=== PATIENT | male | born 1955 | race Hispanic/Latino ===

== ENCOUNTER 2018-01-31 03:48 | Emergency (ER) | payer BC, OTHER ==
[2018-01-31 04:41] LABS: Absolute Lymphocytes (CBC) 2.3 K/uL (0.7-4.9); Absolute Neutrophil 7.6 K/uL (1.8-8.0); Basophils % 0.6 % (0-1.3); Eosinophils % 3.1 % (0-4.4); Lymphocytes % 20.8 % (15.3-44.8); MCH 30.4 pg (27.0-35.0); MCV 91.2 fL (80-100); MPV 9.5 fL (7.6-11.3); Monocytes % 8.5 % (3.3-12.3); RBC Red Blood Cell Count 5.27 M/uL (4.33-5.43)
[2018-01-31 05:01] LABS: Potassium 3.8 mEq/L (3.6-5.0)
[2018-01-31 05:02] LABS: Glomerular Filtration Rate > 60 mL/min (>60)
[2018-01-31 05:07] LABS: Bilirubin Direct 0.1 mg/dL (0-0.2); Bilirubin Total 0.7 mg/dL (0.3-1.2); Protein, Total 6.9 g/dL (6.0-8.3)
[2018-01-31] MEDS ORDERED: MEPERIDINE HCL 25 MG/0.5 ML ONE ×2 (05:15→06:17)
[2018-01-31 05:35] LABS: Urine Blood TRACE (NEG); Urine Glucose NEGATIVE (NEG); Urine Protein NEGATIVE (NEG); Urine Specific Gravity 1.025 (1.005-1.030)
[2018-01-31 05:43] LABS: Urine Bacteria <20 /HPF (NONE SEEN); Urine Culture Reflex Order NOT NEEDED; Urine RBC <5 /HPF (NONE SEEN)
--- NOTE | 2018-01-31 07:54 | EDPHYS ---
Physician Documentation [facility] Name: Martir Montejo Jr Age: 62 yrs Sex: Male : 1955 Arrival Date: 01/31/2018 Time: 03:50 Bed 20 Private MD: Saúl Loaiza ED Physician Helder Lanier HPI: 01/31 04:13 This 62 yrs old Male presents to ER via Unassigned with complaints of rn Abdominal Pain. 04:14 The patient presents with abdominal pain in the lower abdomen. Onset: The rn symptoms/episode began/occurred yesterday. The symptoms do not radiate. Associated signs and symptoms: Pertinent positives: constipation, Pertinent negatives: anorexia, blood in stools, diarrhea, dysuria, fever, shortness of breath, testicular pain, vomiting, vomiting blood. The symptoms are described as achy, crampy. Modifying factors: The symptoms are alleviated by nothing, the symptoms are aggravated by nothing. Severity of pain: At its worst the pain was mild in the emergency department the pain is unchanged. The patient has not experienced similar symptoms in the past. Reports lower abd pain that began last night, intermittent, tried to go to bathroom and couldn't, no fever, no trauma, never happened before, started shortly after taking zquil. Historical: - Allergies: 04:19 PENICILLINS; jd3 - Home Meds: 04:19 carvedilol 12.5 mg oral tab 1 tab 2 times per day [Active]; lisinopril 20 mg Oral tab 1 jd3 tab once daily [Active]; simvastatin 20 mg Oral tab 1 tab once daily [Active]; - PMHx: 04:19 Hypertension; High Cholesterol; jd3 - PSHx: 04:19 left foot surgery; jd3 - Immunization history:: Adult Immunizations up to date. - Family history:: not pertinent. - Social history:: Smoking status: Patient uses tobacco products, smokes one pack cigarettes per day. - Hospitalizations: : No recent hospitalization is reported. ROS: 04:14 Constitutional: Negative for fever, chills, and weight loss, Eyes: Negative for injury, rn pain, redness, and discharge, Cardiovascular: Negative for chest pain, palpitations, and edema, Respiratory: Negative for shortness of breath, cough, wheezing, and pleuritic chest pain, Abdomen/GI: Negative for nausea, vomiting, diarrhea Back: Negative for injury and pain, MS/Extremity: Negative for injury and deformity, Skin: Negative for injury, rash, and discoloration, Neuro: Negative for headache, weakness, numbness, tingling, and seizure. Exam: 04:14 Constitutional: This is a well developed, well nourished patient who is awake, alert, rn and in no acute distress. Head/Face: Normocephalic, atraumatic. Eyes: Pupils equal round and reactive to light, extra-ocular motions intact. Lids and lashes normal. Conjunctiva and sclera are non-icteric and not injected. Cornea within normal limits. Periorbital areas with no swelling, redness, or edema. Neck: Trachea midline, no thyromegaly or masses palpated, and no cervical lymphadenopathy. Supple, full range of motion without nuchal rigidity, or vertebral point tenderness. No Meningismus. Cardiovascular: Regular rate and rhythm with a normal S1 and S2. No gallops, murmurs, or rubs. Normal PMI, no JVD. No pulse deficits. Respiratory: Lungs have equal breath sounds bilaterally, clear to auscultation and percussion. No rales, rhonchi or wheezes noted. No increased work of breathing, no retractions or nasal flaring. Abdomen/GI: Soft, non-tender, with normal bowel sounds. No distension or tympany. No guarding or rebound. No evidence of tenderness throughout. MS/ Extremity: Pulses equal, no cyanosis. Neurovascular intact. Full, normal range of motion. Equal circumference. Neuro: Awake and alert, GCS 15, oriented to person, place, time, and situation. Cranial nerves II-XII grossly intact. Motor strength 5/5 in all extremities. Sensory grossly intact. Cerebellar exam normal. Normal gait. Vital Signs: 04:15 BP 154 / 139; Pulse 62; Resp 18 S; Temp 98.0(O); Pulse Ox 99% on R/A; Weight 100.24 kg jd3 (R); Height 5 ft. 10 in. (177.80 cm) (R); Pain 0/10; 04:48 BP 159 / 76; Pulse 55; Resp 18 S; Pulse Ox 98% on R/A; Pain 0/10; jd3 05:45 BP 168 / 82; Pulse 59; Resp 17 S; Pulse Ox 96% on R/A; Pain 6/10; jd3 06:43 BP 179 / 75; Pulse 56; Resp 17 S; Pulse Ox 96% on R/A; jd3 08:15 BP 170 / 74; Pulse 62; Resp 15; Temp 97.9; Pulse Ox 99% on R/A; Pain 6/10; ch 04:15 Body Mass Index 31.71 (100.24 kg, 177.80 cm) jd3 MDM: 04:00 Patient medically screened. rn 07:57 Data reviewed: vital signs, nurses notes, lab test result(s), EKG, radiologic studies, [facility] scan, plain films. 01/31 04:13 Order name: Basic Metabolic Panel; Complete Time: 06:12 rn 01/31 04:13 Order name: CBC with Diff; Complete Time: 04:49 rn 01/31 04:13 Order name: Creatinine for Radiology; Complete Time: 06:12 rn 01/31 04:13 Order name: Hepatic Function; Complete Time: 06:12 rn 01/31 04:13 Order name: Lipase; Complete Time: 06:12 rn 01/31 04:13 Order name: Urine Microscopic Only; Complete Time: 06:12 rn 01/31 04:13 Order name: IV Saline Lock; Complete Time: 04:24 rn 01/31 04:13 Order name: CT Abd/Pelvis - W/Contrast rn 01/31 04:13 Order name: Flu; Complete Time: 06:12 rn 01/31 04:13 Order name: CK; Complete Time: 06:12 rn 01/31 05:08 Order name: Urine Dipstick--Ancillary (enter results); Complete Time: 06:12 rg2 01/31 04:13 Order name: Labs collected and sent; Complete Time: 04:24 rn 01/31 04:13 Order name: Urine Dipstick-Ancillary (obtain specimen); Complete Time: 05:07 rn 01/31 07:57 Order name: EKG - Nurse/Tech; Complete Time: 08:05 [facility] Administered Medications: 05:07 Drug: Demerol - Meperidine 12.5 mg Route: IVP; Site: right antecubital; jd3 06:03 Follow up: Response: No adverse reaction; Pain is unchanged, physician notified jd3 06:02 Drug: Demerol - Meperidine 12.5 mg Route: IVP; Site: right antecubital; jd3 07:09 Follow up: Response: No adverse reaction; Marked relief of symptoms Disposition: 01/31/18 07:54 Discharged to Home. Impression: Abdominal tenderness. - Condition is Stable. - Discharge Instructions: Abdominal Pain, Adult, Abdominal Pain, Adult, [id number]. - Prescriptions for Bentyl 20 mg Oral Tablet - take 1 tablet by ORAL route every 6 hours As needed; 20 tablet. Pepcid 20 mg Oral Tablet - take 1 tablet by ORAL route every 12 hours for 10 days; 20 tablet. Zofran 4 mg Oral Tablet - take 1 tablet by ORAL route every 12 hours As needed; 20 tablet. - Work release form, Family Work Release, Medication Reconciliation Form, Thank You Letter, Antibiotic Education, Prescription Opioid Use form. - Follow up: Saúl Loaiza MD; When: 1 - 2 days; Reason: Recheck today's complaints, Continuance of care, Re-evaluation by your physician. - Problem is new. - Symptoms have improved. Signatures: Dispatcher [employer] Tamika Negrete, RN RN Cristobal Natarajan MD MD cha Nieto, Roman, MD MD rn Davies, Jonathon, RN RN jd3
--- NOTE | 2018-01-31 07:54 | ER ---
Nurse's Notes [facility] Name: Martir Montejo Jr Age: 62 yrs Sex: Male : 1955 Arrival Date: 01/31/2018 Time: 03:50 Bed 20 Private MD: Saúl Loaiza Diagnosis: Abdominal tenderness Presentation: 01/31 04:13 Presenting complaint: Patient states: "I have been having lower abdominal, back , and jd3 neck pains and I can't figure out what it is". Transition of care: patient was not received from another setting of care. Onset of symptoms was January 30, 2018. Care prior to arrival: None. 04:13 Method Of Arrival: Ambulatory jd3 04:13 Acuity: SONAM 3 jd3 Historical: - Allergies: 04:19 PENICILLINS; jd3 - Home Meds: 04:19 carvedilol 12.5 mg oral tab 1 tab 2 times per day [Active]; lisinopril 20 mg Oral tab 1 jd3 tab once daily [Active]; simvastatin 20 mg Oral tab 1 tab once daily [Active]; - PMHx: 04:19 Hypertension; High Cholesterol; jd3 - PSHx: 04:19 left foot surgery; jd3 - Immunization history:: Adult Immunizations up to date. - Family history:: not pertinent. - Social history:: Smoking status: Patient uses tobacco products, smokes one pack cigarettes per day. - Hospitalizations: : No recent hospitalization is reported. Screenin:16 Abuse screen: Denies threats or abuse. Nutritional screening: No deficits noted. jd3 Tuberculosis screening: No symptoms or risk factors identified. Fall Risk None identified. Assessment: 04:22 General: Appears in no apparent distress. comfortable, Behavior is calm, cooperative, jd3 appropriate for age. Pain: Denies pain. Neuro: Level of Consciousness is awake, alert, obeys commands, Oriented to person, place, time, situation. Cardiovascular: Heart tones S1 S2 present Capillary refill < 3 seconds Patient's skin is warm and dry. Respiratory: Airway Respiratory effort is even, unlabored, Respiratory pattern is regular, symmetrical, Breath sounds are clear bilaterally. GI: Abdomen is round Bowel sounds present X 4 quads. Abd is soft and non tender X 4 quads. Patient currently denies nausea, vomiting. : No signs and/or symptoms were reported regarding the genitourinary system. EENT: No signs and/or symptoms were reported regarding the EENT system. Derm: Skin is intact, Skin is dry, Skin is normal, Skin temperature is warm. Musculoskeletal: Circulation, motion, and sensation intact. Range of motion: intact in all extremities. 04:26 Reassessment: CT notified of pt finishing oral contrast. jd3 04:48 Reassessment: Patient appears in no apparent distress at this time. Patient and/or jd3 family updated on plan of care and expected duration. Pain level reassessed. Patient is alert, oriented x 3, equal unlabored respirations, skin warm/dry/pink. 05:05 Reassessment: pt reporting pain, provider notified, new orders received, see MAR. jd3 05:45 Reassessment: Patient appears in no apparent distress at this time. Patient and/or jd3 family updated on plan of care and expected duration. Pain level reassessed. Patient is alert, oriented x 3, equal unlabored respirations, skin warm/dry/pink. 06:00 Reassessment: pt reporting continuing pain. provider notified, new orders received see jd3 MAR. 06:43 Reassessment: Patient appears in no apparent distress at this time. Patient and/or jd3 family updated on plan of care and expected duration. Pain level reassessed. Patient is alert, oriented x 3, equal unlabored respirations, skin warm/dry/pink. 07:05 Reassessment: Patient appears in no apparent distress at this time. Patient and/or ch family updated on plan of care and expected duration. Pain level reassessed. pt is sleeping in room, resps even and unlabored, no s/s of distress. awaiting ct results. 08:15 Reassessment: Patient appears in no apparent distress at this time. Patient and/or ch family updated on plan of care and expected duration. Pain level reassessed. Patient is alert, oriented x 3, equal unlabored respirations, skin warm/dry/pink. Patient states feeling better. Patient states symptoms have improved. Vital Signs: 04:15 BP 154 / 139; Pulse 62; Resp 18 S; Temp 98.0(O); Pulse Ox 99% on R/A; Weight 100.24 kg jd3 (R); Height 5 ft. 10 in. (177.80 cm) (R); Pain 0/10; 04:48 BP 159 / 76; Pulse 55; Resp 18 S; Pulse Ox 98% on R/A; Pain 0/10; jd3 05:45 BP 168 / 82; Pulse 59; Resp 17 S; Pulse Ox 96% on R/A; Pain 6/10; jd3 06:43 BP 179 / 75; Pulse 56; Resp 17 S; Pulse Ox 96% on R/A; jd3 08:15 BP 170 / 74; Pulse 62; Resp 15; Temp 97.9; Pulse Ox 99% on R/A; Pain 6/10; ch 04:15 Body Mass Index 31.71 (100.24 kg, 177.80 cm) jd3 ED Course: 03:50 Patient arrived in ED. am2 03:50 Saúl Loaiza MD is Private Physician. am2 04:00 Helder Lanier MD is Attending Physician. rn 04:12 Claudio Foley RN is Primary Nurse. jd3 04:15 Triage completed. jd3 04:16 Arm band placed on. jd3 04:17 Patient has correct armband on for positive identification. jd3 06:19 CT Abd/Pelvis - W/Contrast In Process Unspecified. EDMS 06:58 Report given to Tamika ZAMAN. jd3 07:00 Inserted saline lock: 20 gauge in right antecubital area, using aseptic technique. ch Blood collected. 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 07:05 No apparent distress. Resting quietly. ch 07:05 Pulse ox on. NIBP on. ch 07:05 No provider procedures requiring assistance completed. ch 07:10 Primary Nurse role handed off by Claudio Foley RN ch 07:10 Tamika Pena, JUNIE is Primary Nurse. ch 07:52 Saúl Loaiza MD is Referral Physician. amy 08:15 IV discontinued, intact, bleeding controlled, No redness/swelling at site. Pressure ch dressing applied. Administered Medications: 05:07 Drug: Demerol - Meperidine 12.5 mg Route: IVP; Site: right antecubital; jd3 06:03 Follow up: Response: No adverse reaction; Pain is unchanged, physician notified jd3 06:02 Drug: Demerol - Meperidine 12.5 mg Route: IVP; Site: right antecubital; jd3 07:09 Follow up: Response: No adverse reaction; Marked relief of symptoms Outcome: 07:00 Discharged to home ambulatory, with family. 07:00 Condition: stable 07:00 Discharge instructions given to patient, family, Instructed on discharge instructions, follow up and referral plans. medication usage, Demonstrated understanding of instructions, follow-up care, medications, Prescriptions given X 3. 07:54 Discharge ordered by MD. reyes 08:19 Patient left the ED. Signatures: Dispatcher [employer] EDTamika Jones, RN Cristobal Nath ch, MD MD cha Nieto, Roman, MD MD rn Moreno, Amanda am2 Davies, Jonathon, RN RN jd3 Corrections: (The following items were deleted from the chart) 06:05 05:45 BP 168 / 82; Pulse 59bpm; Resp 17bpm; Spontaneous; Pulse Ox 96% RA; jd3 jd3 06:59 06:58 Report given to Tamika ZAMAN jd3 jd3
[2018-01-31 08:30] VITALS: BP 170/74; TEMP 97.9; O2SAT 99
--- NOTE | 2018-01-31 09:03 | RAD REPORT ---
EXAM DESCRIPTION: CT - Abdomen Pelvis W Contrast - 01/31/2018 6:19 am CLINICAL HISTORY: Abdominal pain. Lower abdominal pain COMPARISON: None. TECHNIQUE: Computed axial tomography of the abdomen and pelvis was obtained. 100 cc Isovue-300 is ad ministered intravenously. Oral contrast was given. A preliminary report was generated by [facility] and reviewed prior to this dictation All CT scans are performed using dose optimization technique as appropriate and may include automated exposure control or mA/KV adjustment according to patient size. FINDINGS: The liver, spleen, pancreas, adrenals and kidneys appear unremarkable. The appendix is normal caliber. There is no evidence of diverticulitis. Small inguinal hernias contain fat IMPRESSION: No acute abnormality is displayed
== END 2018-01-31 08:19 | disposition home or self-care (01) ==
LOC: ER 03:48
DX: R10.819 Abdominal tenderness, unspecified site (principal); I10 Essential (primary) hypertension; E78.00 Pure hypercholesterolemia, unspecified; F17.210 Nicotine dependence, cigarettes, uncomplicated; Z88.0 Allergy status to penicillin
CPT/HCPCS: 36415; 74177; 80048; 80076; 81003; 81015; 82550; 83690; 85025; 87804; 96374; 99284; J2175; Q9967

== ENCOUNTER 2018-11-04 11:27 | Emergency (ER) | payer BC ==
--- NOTE | 2018-11-04 13:52 | ER ---
Nurse's Notes [facility] Name: Martir Montejo Jr Age: 63 yrs Sex: Male : 1955 Arrival Date: 11/04/2018 Time: 11:32 Bed 12 Private MD: Saúl Loaiza Diagnosis: Presentation: 11/04 12:10 Presenting complaint: Patient states: "I slipped and fell on Sunday and hurt my right aa5 knee". Pt c/o right knee pain and swelling. Transition of care: patient was not received from another setting of care. Onset of symptoms was October 2018. Risk Assessment: Do you want to hurt yourself or someone else? Patient reports no desire to harm self or others. Initial Sepsis Screen: Does the patient meet any 2 criteria? No. Patient's initial sepsis screen is negative. Does the patient have a suspected source of infection? No. Patient's initial sepsis screen is negative. Care prior to arrival: None. 12:10 Method Of Arrival: Wheelchair aa5 12:10 Acuity: SONAM 4 aa5 Historical: - Allergies: 12:09 PENICILLINS; aa5 - PMHx: 12:09 High Cholesterol; Hypertension; aa5 - PSHx: 12:09 left foot surgery; aa5 - Immunization history:: Adult Immunizations unknown. - Social history:: Smoking status: Patient uses tobacco products, smokes one pack cigarettes per day. - Ebola Screening: : No symptoms or risks identified at this time. Vital Signs: 12:11 BP 167 / 68; Pulse 72; Resp 18 S; Temp 97.3(TE); Pulse Ox 98% on R/A; Weight 98.88 kg aa5 (R); Height 5 ft. 10 in. (177.80 cm) (R); Pain 10/10; 12:11 Body Mass Index 31.28 (98.88 kg, 177.80 cm) aa5 ED Course: 11:32 Patient arrived in ED. sb2 11:33 Saúl Loaiza MD is Private Physician. sb2 12:09 Arm band placed on. aa5 12:11 Triage completed. aa5 13:51 Helder Lanier MD is Attending Physician. aa5 Administered Medications: No medications were administered Outcome: 13:51 Patient left the ED. aa5 Signatures: Susana Solis RN RN aa5 Alexus Jerome sb2 Corrections: (The following items were deleted from the chart) 12:12 12:11 98.88 kg Reported; Height 5 ft. 10 in. Reported; BMI: 31.2; Pain 08/07; aa5 aa5
[2018-11-04 14:08] VITALS: BP 167/68; TEMP 97.3; O2SAT 98
== END 2018-11-04 13:51 | disposition left against medical advice (07) ==
LOC: ER 11:27
DX: M25.561 Pain in right knee (principal); W01.0XXA Fall on same level from slipping, tripping and stumbling without subsequent striking against object, initial encounter; F17.210 Nicotine dependence, cigarettes, uncomplicated; Z53.21 Procedure and treatment not carried out due to patient leaving prior to being seen by health care provider
CPT/HCPCS: 99281

== ENCOUNTER 2019-09-17 19:06 | Emergency (ER) | payer OTHER ==
--- NOTE | 2019-09-17 19:45 | RAD REPORT ---
EXAM DESCRIPTION: CT - Head Brain Wo Cont - 09/17/2019 7:31 pm CLINICAL HISTORY: Headache COMPARISON: 2013 TECHNIQUE: Computed axial tomography of the head was obtained. IV contrast was not requested. All CT scans are performed using dose optimization technique as appropriate and may include automated exposure control or mA/KV adjustment according to patient size. FINDINGS: An intracranial bleed is not seen . The ventricles are normal in caliber. No extra-axial fluid collection is noted. Small parity falcine lipoma. Small lipoma in the region of the tentorium. Fluid within the sinuses/ mastoids is not seen. IMPRESSION: No acute intracranial abnormality is seen. If patient's symptoms persist MRI of the bra in would be recommended.
[2019-09-17 22:09] LABS: Absolute Lymphocytes (CBC) 3.2 K/uL (0.7-4.9); Basophils % 0.6 % (0-1.3); Hematocrit 48.8 % (39.6-49.0); RBC Red Blood Cell Count 5.25 M/uL (4.33-5.43)
[2019-09-17 22:12] LABS: Potassium 3.5 mmol/L (3.5-5.1)
[2019-09-17 22:13] LABS: Protime INR 1.1
--- NOTE | 2019-09-17 23:50 | ER ---
Nurse's Notes [facility] Name: Martir Montejo Jr Age: 64 yrs Sex: Male : 1955 Arrival Date: 09/17/2019 Time: 19:07 Bed 13 Private MD: Saúl Loaiza Diagnosis: Parasthesias Presentation: 09/17 19:08 Presenting complaint: Patient states: Numbness to left side of face and left arm that aj1 started one hour and lasted approximately 15 minutes before resolving. Patient states that he had a similar episode yesterday. Denies any numbness at this time. 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 Equal smile. Patient reports headache. Transition of care: patient was not received from another setting of care. Onset of symptoms was September 17, 2019. Risk Assessment: Do you want to hurt yourself or someone else? Patient reports no desire to harm self or others. Initial Sepsis Screen: Does the patient meet any 2 criteria? No. Patient's initial sepsis screen is negative. Does the patient have a suspected source of infection? No. Patient's initial sepsis screen is negative. Care prior to arrival: None. 19:08 Method Of Arrival: Ambulatory aj1 19:08 Acuity: SONAM 3 aj1 Triage Assessment: 19:10 General: Appears in no apparent distress. comfortable, Behavior is calm, cooperative, aj1 appropriate for age. Pain: Complains of pain in right samaritan and left samaritan Pain currently is 6 out of 10 on a pain scale. 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 Full function Gait is steady, Speech is normal, Facial symmetry appears normal, Reports headache. Cardiovascular: Patient's skin is warm and dry. Respiratory: Airway is patent Respiratory effort is even, unlabored, Respiratory pattern is regular, symmetrical. Historical: - Allergies: 19:10 PENICILLINS; aj1 - Home Meds: 19:10 carvedilol 12.5 mg Oral tab 1 tab 2 times per day [Active]; lisinopril 20 mg Oral tab 1 aj1 tab once daily [Active]; simvastatin 20 mg Oral tab 1 tab once daily [Active]; - PMHx: 19:10 High Cholesterol; Hypertension; aj1 - Immunization history:: Flu vaccine status is unknown. - Social history:: Smoking status: Patient uses tobacco products, smokes one-half pack cigarettes per day. - Ebola Screening: : Patient denies travel to an Ebola-affected area in the 21 days before illness onset. Screenin:19 Abuse screen: Denies threats or abuse. Denies injuries from another. Nutritional lp1 screening: No deficits noted. Tuberculosis screening: No symptoms or risk factors identified. Fall Risk None identified. 21:35 The patient has not been NPO before screening. Patient noted to have drink at bedside lp1 The patient is alert, able to follow commands. The patient does not exhibit slurred or garbled speech The patient is not exhibiting difficulty speaking. The patient does not exhibit difficulty understanding words. The patient is able to swallow own secretions with no drooling or need for suction. Patient tolerated one teaspoon of water. No drooling, immediate coughing, gurgling, or clearing of the throat was noted. The patient tolerated 90mL of water. No drooling, immediate coughing, gurgling, or clearing of the throat was noted. The patient passed the bedside swallow screening. Oral medications may be given as ordered. Contact Physician for further diet orders. Provider notified of bedside swallow screening results: Vincent Quach MD. Assessment: 21:18 Reassessment: Patient states symptoms of tingling to left arm and left side of lip lp1 resolved at this time. General: Appears in no apparent distress. Behavior is calm, cooperative, appropriate for age. Pain: Denies pain. Neuro: Level of Consciousness is awake, alert, obeys commands, Oriented to person, place, time, situation, Moves all extremities. Full function Gait is steady, Speech is normal, Pupils are PERRLA, Intact. Cardiovascular: Patient's skin is warm and dry. Respiratory: Respiratory effort is even, unlabored. GI: No signs and/or symptoms were reported involving the gastrointestinal system. : No signs and/or symptoms were reported regarding the genitourinary system. EENT: No signs and/or symptoms were reported regarding the EENT system. Derm: Skin is pink, warm \T\ dry. Musculoskeletal: No deficits noted. 21:35 Reassessment: Per Dr. Quach, patient okay to eat at this time; sandwich given. lp1 22:51 Reassessment: Patient appears in no apparent distress at this time. No changes from fu previously documented assessment. Patient is alert, oriented x 3, equal unlabored respirations, skin warm/dry/pink. Patient states feeling better. Vital Signs: 19:10 BP 140 / 71; Pulse 65; Resp 16; Temp 97.2; Pulse Ox 100% on R/A; Weight 98.88 kg (R); aj1 Height 5 ft. 10 in. (177.80 cm) (R); 21:18 BP 134 / 67; Pulse 64; Resp 18; Pulse Ox 98% on R/A; Pain 0/10; lp1 22:52 BP 131 / 63; Pulse 61; Pulse Ox 95% ; Pain 0/10; fu 19:10 Body Mass Index 31.28 (98.88 kg, 177.80 cm) aj ED Course: 19:07 Patient arrived in ED. as 19:07 Saúl Loaiza MD is Private Physician. as 19:10 Triage completed. aj1 19:10 Arm band placed on Patient placed in waiting room, Patient notified of wait time. aj1 19:30 CT Head Brain wo Cont In Process Unspecified. EDMS 20:50 Vincent Quach MD is Attending Physician. tw4 21:18 Pamella Quintanilla, RN is Primary Nurse. lp1 21:20 Patient has correct armband on for positive identification. lp1 21:45 Inserted saline lock: 20 gauge in right antecubital area, using aseptic technique. oe Blood collected. 22:30 No provider procedures requiring assistance completed. lp1 23:30 No apparent distress. resting in bed. fu 23:47 Saúl Loaiza MD is Referral Physician. tw4 23:51 Kiran Smith MD is Referral Physician. tw4 Administered Medications: No medications were administered Outcome: 23:50 Discharge ordered by . tw4 09/18 00:35 Patient left the ED. fu Signatures: Dispatcher [employer] EDMS Jovita Bower, RN RN aj1 Thelma Feng as Pamella Quintanilla, JUNIE RN lp1 Spencer Robledo Felix, RN RN Vincent Quach MD MD tw4 Corrections: (The following items were deleted from the chart) 09/17 22:34 21:30 Reassessment: Per Dr. Quach, patient okay to eat at this time; sandwich given [id number]
--- NOTE | 2019-09-17 23:50 | EDPHYS ---
Physician Documentation [facility] Name: Martir Montejo Jr Age: 64 yrs Sex: Male : 1955 Arrival Date: 09/17/2019 Time: 19:07 Bed 13 Private MD: Saúl Loaiza ED Physician Vincent Quach HPI: 09/18 04:21 This 64 yrs old Male presents to ER via Ambulatory with complaints of Numbness tw4 Of Face, Numbness Of Arm. 04:21 The patient's problem is reported as paresthesias, in left upper extremity, in left tw4 side of face. Onset: The symptoms/episode began/occurred today. Duration: lasting a few minutes, the last episode was 2 hour(s) ago. 04:23 Context: symptoms became apparent occurred at home. The symptoms are alleviated by tw4 nothing. The symptoms are aggravated by nothing. Associated signs and symptoms: The patient has no apparent associated signs or symptoms. Pt had numbness on the corner of his mouth on the left side and numbness to his hand only. pt denied weakness of upper, lower extremity. Pt denied speech changes. Historical: - Allergies: 09/17 19:10 PENICILLINS; aj1 - Home Meds: 19:10 carvedilol 12.5 mg Oral tab 1 tab 2 times per day [Active]; lisinopril 20 mg Oral tab 1 aj1 tab once daily [Active]; simvastatin 20 mg Oral tab 1 tab once daily [Active]; - PMHx: 19:10 High Cholesterol; Hypertension; aj1 - Immunization history:: Flu vaccine status is unknown. - Social history:: Smoking status: Patient uses tobacco products, smokes one-half pack cigarettes per day. - Ebola Screening: : Patient denies travel to an Ebola-affected area in the 21 days before illness onset. ROS: 09/18 04:31 Constitutional: Negative for fever, chills, and weight loss, Eyes: Negative for injury, tw4 pain, redness, and discharge, Cardiovascular: Negative for chest pain, palpitations, and edema, Respiratory: Negative for shortness of breath, cough, wheezing, and pleuritic chest pain, Abdomen/GI: Negative for abdominal pain, nausea, vomiting, diarrhea, and constipation, Back: Negative for injury and pain, MS/Extremity: Negative for injury and deformity, Skin: Negative for injury, rash, and discoloration. Neuro: Positive for numbness, Negative for altered mental status, dizziness, gait disturbance, headache, hearing loss, loss of consciousness, seizure activity, speech changes, syncope, near syncope, tingling, tinnitus, tremor, visual changes, weakness. Exam: 04:31 Radiologist reports: No acute changes tw4 04:31 Constitutional: This is a well developed, well nourished patient who is awake, alert, and in no acute distress. Head/Face: Normocephalic, atraumatic. Eyes: Pupils equal round and reactive to light, extra-ocular motions intact. Lids and lashes normal. Conjunctiva and sclera are non-icteric and not injected. Cornea within normal limits. Periorbital areas with no swelling, redness, or edema. ENT: Nares patent. No nasal discharge, no septal abnormalities noted. Tympanic membranes are normal and external auditory canals are clear. Oropharynx with no redness, swelling, or masses, exudates, or evidence of obstruction, uvula midline. Mucous membranes moist. Neck: Trachea midline, no thyromegaly or masses palpated, and no cervical lymphadenopathy. Supple, full range of motion without nuchal rigidity, or vertebral point tenderness. No Meningismus. Chest/axilla: Normal chest wall appearance and motion. Nontender with no deformity. No lesions are appreciated. Cardiovascular: Regular rate and rhythm with a normal S1 and S2. No gallops, murmurs, or rubs. Normal PMI, no JVD. No pulse deficits. Respiratory: Lungs have equal breath sounds bilaterally, clear to auscultation and percussion. No rales, rhonchi or wheezes noted. No increased work of breathing, no retractions or nasal flaring. Abdomen/GI: Soft, non-tender, with normal bowel sounds. No distension or tympany. No guarding or rebound. No evidence of tenderness throughout. Skin: Warm, dry with normal turgor. Normal color with no rashes, no lesions, and no evidence of cellulitis. MS/ Extremity: Pulses equal, no cyanosis. Neurovascular intact. Full, normal range of motion. Neuro: Awake and alert, GCS 15, oriented to person, place, time, and situation. Cranial nerves II-XII grossly intact. Motor strength 5/5 in all extremities. Sensory grossly intact. Cerebellar exam normal. Normal gait. Vital Signs: 09/17 19:10 BP 140 / 71; Pulse 65; Resp 16; Temp 97.2; Pulse Ox 100% on R/A; Weight 98.88 kg (R); aj1 Height 5 ft. 10 in. (177.80 cm) (R); 21:18 BP 134 / 67; Pulse 64; Resp 18; Pulse Ox 98% on R/A; Pain 0/10; lp1 22:52 BP 131 / 63; Pulse 61; Pulse Ox 95% ; Pain 0/10; fu 19:10 Body Mass Index 31.28 (98.88 kg, 177.80 cm) [facility] MDM: 20:50 Patient medically screened. tw09/18 04:31 Differential diagnosis: CVA, TIA. Data reviewed: vital signs, nurses notes. Counseling: tw4 I had a detailed discussion with the patient and/or guardian regarding: the historical points, exam findings, and any diagnostic results supporting the discharge/admit diagnosis, lab results, radiology results. Special discussion: I discussed with the patient/guardian in detail that at this point there is no indication for admission to the hospital. It is understood, however, that if the symptoms persist or worsen the patient needs to return immediately for re-evaluation. ED course: Symptoms did not seem to be typical for CVA or TIA but appeared to be more focal in nature. Will have pt followup with PCP for MRI. 09/17 21:24 Order name: Basic Metabolic Panel; Complete Time: 23:42 [facility] 09/17 23:43 Interpretation: Normal except: GFR 80. tw09/17 21:24 Order name: CBC with Diff; Complete Time: 23:42 tw4 09/17 23:43 Interpretation: Normal except: WBC 11.9. tw4 09/17 19:13 Order name: CT Head Brain wo Cont; Complete Time: 23:42 [facility] 09/17 23:43 Interpretation: No acute disease. tw09/17 21:24 Order name: Protime (+inr); Complete Time: 23:42 [facility] 09/17 23:43 Interpretation: Normal except: PT 12.9. tw09/17 21:24 Order name: Ptt, Activated; Complete Time: 23:42 [facility] 09/17 23:43 Interpretation: Within normal limits: PTT 34.4. tw4 09/17 22:00 Order name: Glucose, Ancillary Testing; Complete Time: 23:42 [facility] 09/17 21:24 Order name: EKG; Complete Time: 21:25 tw4 09/17 21:24 Order name: Accucheck; Complete Time: 21:50 tw4 09/17 21:24 Order name: Cardiac monitoring; Complete Time: 21:38 tw4 09/17 21:24 Order name: EKG - Nurse/Tech; Complete Time: 21:50 tw4 09/17 21:24 Order name: IV Saline Lock; Complete Time: 21:50 tw4 09/17 21:24 Order name: Labs collected and sent; Complete Time: 21:50 tw4 09/17 21:24 Order name: NPO; Complete Time: 21:38 tw4 09/17 21:24 Order name: O2 Per Protocol; Complete Time: 21:38 tw4 09/17 21:24 Order name: O2 Sat Monitoring; Complete Time: 21:38 tw4 09/17 21:24 Order name: Stroke Swallow Screen; Complete Time: 21:38 tw4 EC:49 Rate is 62 beats/min. Rhythm is regular. QRS [place] is Normal. UT interval is normal. QRS tw4 interval is normal. QT interval is normal. No Q waves. T waves are Normal. No ST changes noted. Clinical impression: Normal ECG. Interpreted by me. Reviewed by me. Administered Medications: No medications were administered Disposition: 04:36 Chart complete. tw4 Disposition: 09/17/19 23:50 Discharged to Home. Impression: Parasthesias. - Condition is Stable. - Discharge Instructions: Peripheral Neuropathy, Focal Neuropathy. - Work release form, Medication Reconciliation Form, Thank You Letter, Antibiotic Education, Prescription Opioid Use form. - Follow up: Saúl Loiaza MD; When: Upon discharge from the Emergency Department; Reason: Recheck today's complaints, Continuance of care. Follow up: Kiran Smith MD; When: Upon discharge from the Emergency Department; Reason: Recheck today's complaints, Continuance of care. - Problem is new. - Symptoms have improved. Signatures: Dispatcher [employer] EDNY Jovita Bower RN RN aj1 Tushar Mooney RN RN fu Wadley, Terrence, MD MD tw4 Corrections: (The following items were deleted from the chart) 09/17 23:51 23:50 09/17/2019 23:50 Discharged to Home. Impression: Parasthesias. Condition is tw4 Stable. Forms are Medication Reconciliation Form, Thank You Letter, Antibiotic Education, Prescription Opioid Use. Follow up: Saúl Loaiza; When: Upon discharge from the Emergency Department; Reason: Recheck today's complaints, Continuance of care. Problem is new. Symptoms have improved. tw4 09/18 00:35 09/17 23:51 09/17/2019 23:50 Discharged to Home. Impression: Parasthesias. Condition is fu Stable. Discharge Instructions: Peripheral Neuropathy, Focal Neuropathy. Forms are Medication Reconciliation Form, Thank You Letter, Antibiotic Education, Prescription Opioid Use. Follow up: Saúl Loaiza; When: Upon discharge from the Emergency Department; Reason: Recheck today's complaints, Continuance of care. Follow up: Kiran Smith; When: Upon discharge from the Emergency Department; Reason: Recheck today's complaints, Continuance of care. Problem is new. Symptoms have improved. tw4
[2019-09-18 04:21] VITALS: TEMP 97.2
[2019-09-18 04:23] VITALS: BP 131/63; O2SAT 95
--- NOTE | 2019-09-18 06:13 | EKG ---
Test Date: 2019-09-17 Test Time: 21:49:51 Vp Legal Affairs: MIKE MEASUREMENT RESULTS: Intervals: Rate: 62 SC: 186 QRSD: 98 QT: 400 QTc: 406 [place]: P: -15 SC: 186 QRS: 73 T: 75 INTERPRETIVE STATEMENTS: Normal sinus rhythm Normal ECG Compared to ECG 06/20/2014 05:36:32 Sinus bradycardia no longer present Electronically Signed On 09-18-19 06:12:40 AESTHETICIAN by Jayro Mathew
== END 2019-09-18 00:35 | disposition home or self-care (01) ==
LOC: ER 19:06
DX: R20.2 Paresthesia of skin (principal); I10 Essential (primary) hypertension; F17.210 Nicotine dependence, cigarettes, uncomplicated; E78.00 Pure hypercholesterolemia, unspecified; Z88.0 Allergy status to penicillin
CPT/HCPCS: 36415; 70450; 80048; 82947; 85025; 85610; 85730; 93005; 99283

== ENCOUNTER 2025-08-18 11:31 | Emergency (ER) | payer OTHER ==
--- OUTSIDE RECORDS SUMMARY | 2025-08-18 11:38 | XMS REPORT | Continuity of Care Document ---
Author Name Unknown Address [address] [place] [address] [facility] [place] Address 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 Role Phone Jasmyn Hector Primary Care Physician [phone] PRIETO NGUYEN Attending Clinician Unavailable PRIETO NGUYEN Attending Clinician Unavailable ANGELITO PETERSON Attending Clinician Unavailable Jasmyn Hector Attending Clinician [phone] Doctor Unassigned, [place] Attending Clinician U LOUISE Martin Attending Clinician UnavailMELANI Camacho Attending Clinician MELANI Combs Attending Clinician Merary Peterson MD, [place] Attending Clinician [phone] Lab, Ang - Db Attending Clinician Unavailable JASMYN WARE Attending Clinician Unavailable ARASELI CAGLE Attending Clinician UnavailARASELI Guzmán Attending Clinician Yvonne Thompson MD Attending Clinician [phone] Jasmyn Hector Attending Clinician [phone] Lab, Ang - Db Attending Clinician Unavailable YVONNE COOK Attending Clinician Unavailable Doctor Unassigned, [place] Attending Clinician U Anneliese Krueger LVN Attending Clinician YVONNE Lopez Admitting Clinician Unavailable Payers Payer Name Policy Type Policy Number Effective Date Expirati on Date Source MEDICARE PART A \\T\\ [id number] 2022 00:00:00 Problems Condition Name Condition Details Condition Category Status Onset Date Resolution Date Last Treatment Date Treating Clinician Comments Source Abnormal EKG Abnormal EKG Disease Active 02-10 00:00: 00 [facility] Atrial fibrillati on, unspecifie d type Atrial fibrillati on, unspecifie d type Disease Active 02-10 00:00: 00 [facility] Essential hypertensi on Essential hypertensi on Disease Active 03-22 00:00: 00 [facility] Mixed hyperlipid emia Mixed hyperlipid emia Disease Active 03-22 00:00: 00 [facility] Elevated glucose Elevated glucose Disease Active 03-22 00:00: 00 [facility] Allergies, Adverse Reactions, Alerts Allergy Name Allergy Type Status Severity Reaction(s) Onset Date Inactive Date Treating Clinician Comments Source PENICILL IN DRUG INGREDI Active Unknown-Cmnt 12-12 00:00: 00 [facility] Penicill in Propensi ty to adverse reaction s Active Unknown - See comments 12-12 00:00: 00 [facility] NO KNOWN ALLERGIE S Drug Class Active [facility] Social History Social Habit Start Date Stop Date Quantity Comments Source Gender identity [facility] Sexual orientation U [facility] History of tobacco use Cigarette Smoker [facility] History of Social function 2025-03-03 00:00:00 2025-03-03 00:00:00 [facility] Alcoholic beverage intake 2025-02-20 00:00:00 2025-02-20 00:00:00 Lifetime non-drinker (finding) [facility] Alcohol intake 2024-02-12 00:00:00 2024-02-12 00:00:00 Lifetime non-drinker (finding) [facility] Exposure to SARS-CoV-2 (event) 2023-03-11 00:00:00 2023-03-21 07:22:00 Not sure [facility] Tobacco use and exposure 2022-12-12 00:00:00 2022-12-12 00:00:00 Smokeless tobacco non-user [facility] Sex assigned at 1955 00:00:00 1955 00:00:00 [facility] Smoking Status Start Date Stop Date Source Tobacco smoking consumption unknown [facility] Occasional tobacco smoker 2022-12-12 00:00:00 [facility] Medications Ordered Medication Name Filled Medication Name Start Date Stop Date Current Medication? Ordering Clinician Indication Dosage Frequency Signature (SIG) Comments Components Source carvediloL 12.5 mg tablet 04-17 00:00: 00 Yes [id number] 12.5mg Take 1 tablet by mouth in the morning and 1 tablet in the evening. Take with meals. [facility] Diclofenac Potassium 25 mg Cap 02-23 00:00: 00 03-26 04:59 :00 No [id number] 50mg Take 50 mg by mouth in the morning and 50 mg in the evening. Do all this for [address] [facility] simvastatin 20 mg tablet 02-20 00:00: 00 Yes [id number] 20mg Take 1 tablet by mouth at bedtime. [facility] lisinopriL- hydrochloro thiazide 20-12.5 mg per tablet 02-20 00:00: 00 Yes [id number] 1{tbl} Take 1 tablet by mouth in the morning and 1 tablet in the evening. [facility] naproxen 500 mg tablet 02-20 00:00: 00 Yes [id number] 500mg Take 1 tablet by mouth 2 (two) times daily as needed for Pain (scale 4-6). [facility] methylPREDN ISolone 4 mg tablets 02-20 00:00: 00 02-27 04:59 :00 No [id number] Take by mouth SEE-INSTRU CTIONS for 6 days. follow package directions [facility] naproxen 500 mg tablet 2023-10 00:00: 00 02-20 00:00 :00 No [id number] 500mg Take 1 tablet by mouth 2 (two) times daily as needed for Pain (scale 4-6). [facility] naproxen 500 mg tablet 2023-10 0-21 00:00: 00 09-12 00:00 :00 No [id number] 500mg Take 1 tablet by mouth 2 (two) times daily as needed for Pain (scale 4-6). [facility] methylPREDN ISolone 4 mg tablets 2023-10 0- 00:00: 00 08-25 04:59 :00 No [id number] Take by mouth SEE-INSTRU CTIONS for 6 days. follow package directions [facility] carvediloL 12.5 mg tablet 4-15 00:00: 00 04-17 00:00 :00 No [id number] 12.5mg Take 1 tablet by mouth in the morning and 1 tablet in the evening. Take with meals. [facility] simvastatin 20 mg tablet 02-10 00:00: 00 02-20 00:00 :00 No [id number] 20mg Take 1 tablet by mouth at bedtime. [facility] lisinopriL- hydrochloro thiazide 20-12.5 mg per tablet 02-10 00:00: 00 02-20 00:00 :00 No [id number] 1{tbl} Take 1 tablet by mouth in the morning and 1 tablet in the evening. [facility] carvediloL 12.5 mg tablet 2- 00:00: 00 Yes [id number] 12.5mg Take 1 tablet by mouth in the morning and 1 tablet in the evening. Take with meals. [facility] simvastatin 20 mg tablet 2-19 00:00: 00 02-10 00:00 :00 No [id number] 20mg Take 1 tablet by mouth at bedtime. [facility] lisinopriL- hydrochloro thiazide 20-12.5 mg per tablet 2-19 00:00: 00 02-10 00:00 :00 No [id number] 1{tbl} Take 1 tablet by mouth in the morning and 1 tablet in the evening. [facility] carvediloL 12.5 mg tablet 06-18 00:00: 00 Yes [id number] 12.5mg Take 1 tablet by mouth in the morning and 1 tablet in the evening. Take with meals. [facility] lisinopriL- hydrochloro thiazide 20-12.5 mg per tablet 06-08 00:00: 00 12-15 00:00 :00 No [id number] 1{tbl} Take 1 tablet by mouth in the morning and 1 tablet in the evening. [facility] simvastatin 20 mg tablet 06-08 00:00: 00 12-15 00:00 :00 No [id number] 20mg Take 1 tablet by mouth at bedtime. [facility] simvastatin 20 mg tablet 03-15 00:00: 00 Yes [id number] 20mg Take 1 tablet by mouth at bedtime. [facility] carvediloL 12.5 mg tablet 03-15 00:00: 00 06-18 00:00 :00 No [id number] 12.5mg Take 1 tablet by mouth in the morning and 1 tablet in the evening. Take with meals. [facility] lisinopriL- hydrochloro thiazide 20-12.5 mg per tablet 03-15 00:00: 00 06-08 00:00 :00 No [id number] 1{tbl} Take 1 tablet by mouth in the morning and 1 tablet in the evening. [facility] multivit,tx with iron,minera ls (COMPLETE MULTIVITAMI N ORAL) 12-12 10:50: 25 Yes 1000mg Take by mouth. [facility] cholecalcif melita, vitamin D3, (VITAMIN D3) 25 mcg (1,000 unit) tablet 12-12 10:50: 25 Yes 1000U Take 1,000 Units by mouth in the morning. [facility] carvediloL 12.5 mg tablet 12-12 00:00: 00 03-15 00:00 :00 No [id number] 12.5mg Take 1 tablet by mouth in the morning and 1 tablet in the evening. Take with meals. [facility] lisinopriL- hydrochloro thiazide 20-12.5 mg per tablet 2-14 00:00: 00 03-15 00:00 :00 No [id number] 1{tbl} Take 1 tablet by mouth in the morning and 1 tablet in the evening. [facility] simvastatin 20 mg tablet 2-14 00:00: 00 03-15 00:00 :00 No [id number] 20mg Take 1 tablet by mouth at bedtime. [facility] carvediloL 12.5 mg tablet 1-05 00:00: 00 12-12 00:00 :00 No 12.5mg 12.[address] [facility] lisinopriL- hydrochloro thiazide 20-12.5 mg per tablet 1- 00:00: 00 12-12 00:00 :[address] [facility] simvastatin 20 mg tablet 1-05 00:00: 00 12-12 00:00 :00 No 20mg [address] [facility] Immunizations Ordered Immunization Name Filled Immunization Name Date Status Comments Source Influenza, adjuvanted, trivalent, PF (FLUAD) 2024-08-18 00:00:00 Completed [facility] SARS-COV-2 COVID 19 REEMA SUCROSE VACCINE 12+, 0.3 ML (30 MCG), IM PFIZER (DOMINGO TOP) 2024-08-18 00:00:00 Completed Pneumococcal 20 Conjugate, PCV20 (Prevnar 20) 2023-09-29 00:00:00 Completed Influenza, High-Dose, Trivalent, PF (FLUZONE) 2023-09-29 00:00:00 Completed SARS-COV-2 COVID-19 VACCINE - (MODERNA) 2022-06-25 00:00:00 Completed [facility] Influenza Virus Vaccine Recomb Quad IM, Preserv and ABX Free 18-64 YRS 2022-06-25 00:00:00 Completed [facility] SARS-COV-2 COVID-19 VACCINE - (MODERNA) 2022-06-25 00:00:00 Completed [facility] Influenza Virus Vaccine Recomb Quad IM, Preserv and ABX Free 18-64 YRS 2022-06-25 00:00:00 Completed [facility] SARS-COV-2 COVID-19 VACCINE - (MODERNA) 2022-06-25 00:00:00 Completed [facility] Influenza Virus Vaccine Recomb Quad IM, Preserv and ABX Free 18-64 YRS 2022-06-25 00:00:00 Completed [facility] SARS-COV-2 COVID-19 VACCINE - (MODERNA) 2022-06-25 00:00:00 Completed [facility] Influenza Virus Vaccine Recomb Quad IM, Preserv and ABX Free 18-64 YRS 2022-06-25 00:00:00 Completed [facility] SARS-COV-2 COVID-19 VACCINE - (MODERNA) 2022-06-25 00:00:00 Completed [facility] Influenza Virus Vaccine Recomb Quad IM, Preserv and ABX Free 18-64 YRS 2022-06-25 00:00:00 Completed [facility] SARS-COV-2 COVID-19 VACCINE - (MODERNA) 2022-06-25 00:00:00 Completed [facility] Influenza Virus Vaccine Recomb Quad IM, Preserv and ABX Free 18-64 YRS 2022-06-25 00:00:00 Completed [facility] SARS-COV-2 COVID-19 VACCINE - (MODERNA) 2022-06-25 00:00:00 Completed Influenza Virus Vaccine Recomb Quad IM, Preserv and ABX Free 18-64 YRS 2022-06-25 00:00:00 Completed SARS-COV-2 COVID-19 VACCINE - (MODERNA) 2022-06-25 00:00:00 Completed [facility] Influenza Virus Vaccine Recomb Quad IM, Preserv and ABX Free 18-64 YRS 2022-06-25 00:00:00 Completed [facility] SARS-COV-2 COVID-19 VACCINE - (MODERNA) 2021-10-21 00:00:00 Completed [facility] SARS-COV-2 COVID-19 VACCINE - (MODERNA) 2021-10-21 00:00:00 Completed [facility] SARS-COV-2 COVID-19 VACCINE - (MODERNA) 2021-10-21 00:00:00 Completed [facility] SARS-COV-2 COVID-19 VACCINE - (MODERNA) 2021-10-21 00:00:00 Completed [facility] SARS-COV-2 COVID-19 VACCINE - (MODERNA) 2021-10-21 00:00:00 Completed [facility] SARS-COV-2 COVID-19 VACCINE - (MODERNA) 2021-10-21 00:00:00 Completed [facility] SARS-COV-2 COVID-19 VACCINE - (MODERNA) 2021-10-21 00:00:00 Completed SARS-COV-2 COVID-19 VACCINE - (MODERNA) 2021-10-21 00:00:00 Completed [facility] SARS-COV-2 COVID-19 PFIZER VACCINE 2021-01-15 00:00:00 Completed [facility] SARS-COV-2 COVID-19 PFIZER VACCINE 2021-01-15 00:00:00 Completed [facility] SARS-COV-2 COVID-19 PFIZER VACCINE 2021-01-15 00:00:00 Completed [facility] SARS-COV-2 COVID-19 PFIZER VACCINE 2021-01-15 00:00:00 Completed [facility] SARS-COV-2 COVID-19 PFIZER VACCINE 2021-01-15 00:00:00 Completed [facility] SARS-COV-2 COVID-19 PFIZER VACCINE 2021-01-15 00:00:00 Completed [facility] SARS-COV-2 COVID-19 PFIZER VACCINE 2021-01-15 00:00:00 Completed [facility] SARS-COV-2 COVID-19 PFIZER VACCINE 2021-01-15 00:00:00 Completed [facility] SARS-COV-2 COVID-19 PFIZER VACCINE 2021-01-15 00:00:00 Completed [facility] SARS-COV-2 COVID-19 PFIZER VACCINE 2020-12-25 00:00:00 Completed [facility] SARS-COV-2 COVID-19 PFIZER VACCINE 2020-12-25 00:00:00 Completed [facility] SARS-COV-2 COVID-19 PFIZER VACCINE 2020-12-25 00:00:00 Completed [facility] SARS-COV-2 COVID-19 PFIZER VACCINE 2020-12-25 00:00:00 Completed [facility] SARS-COV-2 COVID-19 PFIZER VACCINE 2020-12-25 00:00:00 Completed [facility] SARS-COV-2 COVID-19 PFIZER VACCINE 2020-12-25 00:00:00 Completed [facility] SARS-COV-2 COVID-19 PFIZER VACCINE 2020-12-25 00:00:00 Completed [facility] SARS-COV-2 COVID-19 PFIZER VACCINE 2020-12-25 00:00:00 Completed [facility] SARS-COV-2 COVID-19 PFIZER VACCINE 2020-12-25 00:00:00 Completed [facility] SARS-COV-2 COVID-19 PFIZER VACCINE Unknown Completed [facility] SARS-COV-2 COVID-19 VACCINE - (MODERNA) Unknown Completed [facility] Influenza Virus Vaccine Recomb Quad IM, Preserv and ABX Free 18-64 YRS Unknown Completed [facility] SARS-COV-2 COVID-19 PFIZER VACCINE Unknown Completed [facility] SARS-COV-2 COVID-19 VACCINE - (MODERNA) Unknown Completed [facility] Influenza Virus Vaccine Recomb Quad IM, Preserv and ABX Free 18-64 YRS Unknown Completed [facility] SARS-COV-2 COVID-19 PFIZER VACCINE Unknown Completed [facility] SARS-COV-2 COVID-19 VACCINE - (MODERNA) Unknown Completed [facility] Influenza Virus Vaccine Recomb Quad IM, Preserv and ABX Free 18-64 YRS Unknown Completed [facility] SARS-COV-2 COVID-19 PFIZER VACCINE Unknown Completed [facility] SARS-COV-2 COVID-19 VACCINE - (MODERNA) Unknown Completed [facility] Influenza Virus Vaccine Recomb Quad IM, Preserv and ABX Free 18-64 YRS Unknown Completed [facility] Pneumococcal 20 Conjugate, PCV20 (Prevnar 20) Unknown Completed [facility] Influenza High Dose Unknown Completed [facility] Influenza Virus Vaccine Recomb Quad IM, Preserv and ABX Free 18-64 YRS Unknown Completed [facility] Pneumococcal 20 Conjugate, PCV20 (Prevnar 20) Unknown Completed [facility] Influenza High Dose Unknown Completed [facility] SARS-COV-2 COVID-19 PFIZER VACCINE Unknown Completed [facility] SARS-COV-2 COVID-19 VACCINE - (MODERNA) Unknown Completed [facility] SARS-COV-2 COVID-19 PFIZER VACCINE Unknown Completed [facility] SARS-COV-2 COVID-19 VACCINE - (MODERNA) Unknown Completed [facility] Influenza Virus Vaccine Recomb Quad IM, Preserv and ABX Free 18-64 YRS Unknown Completed [facility] Pneumococcal 20 Conjugate, PCV20 (Prevnar 20) Unknown Completed [facility] Influenza High Dose Unknown Completed [facility] SARS-COV-2 COVID-19 PFIZER VACCINE Unknown Completed [facility] SARS-COV-2 COVID-19 VACCINE - (MODERNA) Unknown Completed [facility] Influenza Virus Vaccine Recomb Quad IM, Preserv and ABX Free 18-64 YRS Unknown Completed [facility] Pneumococcal 20 Conjugate, PCV20 (Prevnar 20) Unknown Completed [facility] Influenza High Dose Unknown Completed [facility] SARS-COV-2 COVID-19 PFIZER VACCINE Unknown Completed [facility] SARS-COV-2 COVID-19 VACCINE - (MODERNA) Unknown Completed [facility] Influenza Virus Vaccine Recomb Quad IM, Preserv and ABX Free 18-64 YRS Unknown Completed [facility] Pneumococcal 20 Conjugate, PCV20 (Prevnar 20) Unknown Completed [facility] Influenza High Dose Unknown Completed [facility] SARS-COV-2 COVID-19 PFIZER VACCINE Unknown Completed [facility] SARS-COV-2 COVID-19 VACCINE - (MODERNA) Unknown Completed [facility] Influenza Virus Vaccine Recomb Quad IM, Preserv and ABX Free 18-64 YRS Unknown Completed [facility] Pneumococcal 20 Conjugate, PCV20 (Prevnar 20) Unknown Completed [facility] Influenza High Dose Unknown Completed [facility] SARS-COV-2 COVID-19 PFIZER VACCINE Unknown Completed [facility] SARS-COV-2 COVID-19 VACCINE - (MODERNA) Unknown Completed [facility] Influenza Virus Vaccine Recomb Quad IM, Preserv and ABX Free 18-64 YRS Unknown Completed [facility] Pneumococcal 20 Conjugate, PCV20 (Prevnar 20) Unknown Completed [facility] Influenza High Dose Unknown Completed [facility] Influenza Virus Vaccine Recomb Quad IM, Preserv and ABX Free 18-64 YRS Unknown Completed [facility] Pneumococcal 20 Conjugate, PCV20 (Prevnar 20) Unknown Completed [facility] Influenza High Dose Unknown Completed [facility] SARS-COV-2 COVID-19 PFIZER VACCINE Unknown Completed [facility] SARS-COV-2 COVID-19 VACCINE - (MODERNA) Unknown Completed [facility] SARS-COV-2 COVID-19 PFIZER VACCINE Unknown Completed [facility] SARS-COV-2 COVID-19 VACCINE - (MODERNA) Unknown Completed [facility] Influenza Virus Vaccine Recomb Quad IM, Preserv and ABX Free 18-64 YRS Unknown Completed [facility] Pneumococcal 20 Conjugate, PCV20 (Prevnar 20) Unknown Completed [facility] Influenza High Dose Unknown Completed [facility] SARS-COV-2 COVID-19 PFIZER VACCINE Unknown Completed [facility] SARS-COV-2 COVID-19 VACCINE - (MODERNA) Unknown Completed [facility] Influenza Virus Vaccine Recomb Quad IM, Preserv and ABX Free 18-64 YRS Unknown Completed [facility] Pneumococcal 20 Conjugate, PCV20 (Prevnar 20) Unknown Completed [facility] Influenza High Dose Unknown Completed [facility] Vital Signs Vital Name Observation Time Observation Value Comments S ource Systolic blood pressure 2025-02-23 15:05:00 165 mm[Hg] [facility] Diastolic blood pressure 2025-02-23 15:05:00 81 mm[Hg] [facility] Heart rate 2025-02-23 15:05:00 51 /min [facility] Body temperature 2025-02-23 15:04:00 36.56 Danisha [facility] Body height 2025-02-23 15:04:[address] [facility] Body weight 2025-02-23 15:04:[address] [facility] BMI 2025-02-23 15:04:00 25.86 kg/m2 [facility] Oxygen saturation in Arterial blood by Pulse oximetry 2025-02-23 15:04:00 97 /min [facility] Systolic blood pressure 2025-02-20 14:52:00 149 mm[Hg] [facility] Diastolic blood pressure 2025-02-20 14:52:00 67 mm[Hg] [facility] Heart rate 2025-02-20 14:44:00 67 /min [facility] Body height 2025-02-20 14:44:[address] [facility] Body weight 2025-02-20 14:44:[address] [facility] BMI 2025-02-20 14:44:00 25.76 [facility] in Arterial blood by Pulse oximetry 2025-02-20 14:44:00 95 /min [facility] Systolic blood pressure 2024-08-18 14:54:00 142 mm[Hg] [facility] Diastolic blood pressure 2024-08-18 14:54:00 59 mm[Hg] [facility] Heart rate 2024-08-18 14:53:00 60 /min [facility] Body temperature 2024-08-18 14:53:00 35.94 Danisha [facility] Respiratory rate 2024-08-18 14:53:00 18 /min [facility] Body height 2024-08-18 14:53:00 177.8 cm [facility] 2024-08-18 14:53:[address] [facility] BMI 2024-08-18 14:53:00 25.97 kg/m2 [facility] Oxygen saturation in Arterial blood by Pulse oximetry 2024-08-18 14:53:00 97 /min [facility] Systolic blood pressure 2024-03-18 20:06:00 133 mm[Hg] [facility] Diastolic blood pressure 2024-03-18 20:06:00 62 mm[Hg] [facility] Heart rate 2024-03-18 20:03:00 60 /min [facility] Body height 2024-03-18 20:03:00 177.8 cm Univ [facility] Body weight 2024-03-18 20:03:00 86.32 kg Univ [facility] BMI 2024-03-18 20:03:00 27.31 kg/m2 [facility] Oxygen saturation in Arterial blood by Pulse oximetry 2024-03-18 20:03:00 97 /min [facility] Systolic blood pressure 2024-02-12 18:45:00 149 mm[Hg] [facility] Diastolic blood pressure 2024-02-12 18:45:00 67 mm[Hg] [facility] Heart rate 2024-02-12 18:45:00 78 /min [facility] Body temperature 2024-02-12 18:45:00 36.67 Danisha [facility] Respiratory rate 2024-02-12 18:45:00 19 /min [facility] Oxygen saturation in Arterial blood by Pulse oximetry 2024-02-12 18:45:00 94 /min [facility] Body height 2024-02-12 18:43:00 177.8 cm [facility] 2024-02-12 18:43:00 88.497 kg Univ [facility] BMI 2024-02-12 18:43:00 27.99 kg/m2 [facility] Systolic blood pressure 2024-02-11 13:54:00 136 mm[Hg] [facility] Diastolic blood pressure 2024-02-11 13:54:00 75 mm[Hg] [facility] Heart rate 2024-02-11 13:54:00 59 /min [facility] 2024-02-11 13:54:00 177.8 cm [facility] weight 2024-02-11 13:54:00 88.179 kg Univ [facility] BMI 2024-02-11 13:54:00 27.89 kg/m2 [facility] Oxygen saturation in Arterial blood by Pulse oximetry 2024-02-11 13:54:00 97 /min [facility] Systolic blood pressure 2022-12-12 16:51:00 157 mm[Hg] [facility] Diastolic blood pressure 2022-12-12 16:51:00 56 mm[Hg] [facility] Heart rate 2022-12-12 16:50:00 80 /min [facility] Body height 2022-12-12 16:50:[address] [facility] Body weight 2022-12-12 16:50:[address] [facility] BMI 2022-12-12 16:50:00 28.84 kg/m2 [facility] Oxygen saturation in Arterial blood by Pulse oximetry 2022-12-12 16:50:00 98 /min [facility] Procedures Procedure Date / Time Performed Performing Clinician Source XR SHOULDER 2+ VW RIGHT 2025-02-23 15:37:05 Lisa Peterson ed [facility] SARS-COV-2 COVID 19 REEMA SUCROSE VACCINE 12+, , 0.3 ML (30 MCG), IM PFIZER (DOMINGO TOP) 2024-08-18 15:03:52 Jeanie [facility] FLU VACC(),65+YR,0. 5 ML,IM,ADJUVANTED,TIV(FLU AD) 2024-08-18 14:59:58 Jeanie [facility] TRANSTHORACIC ECHO (TTE) COMPLETE 2024-02-13 16:30:54 Yvonne Cook [facility] COMP. METABOLIC PANEL ([id number]) 2024-02-11 15:02:00 Jeanie [facility] CBC WITH DIFF 2024-02-11 15:02:00 [facility] HB ECG ROUTINE & RHYTHM STRIP 2024-02-11 14:33:57 Jeanie [facility] COMP. METABOLIC PANEL ([id number]) 2023-03-21 12:36:00 Jeanie [facility] CBC WITH DIFF 2023-03-21 12:36:00 Jeanie Jasmyn [facility] ASSIGNMENT OF BENEFITS 2022-12-12 15:58:06 Docto r Unassigned, [place] [facility] Encounters Start Date/Time End Date/Time Encounter Type Admission Type Attending Clinicians Care Facility Care Department Encounter ID Source 2025-06-26 10:00:00 2025-06-26 10:00:00 Outpatient ANGELITO MILLER [facility] [id number] [facility] 2025-04-17 00:00:00 2025-04-17 16:04:24 [facility] 1..840.114 350.1.13.10 4.2.7.2.[id number] [facility] 2025-03-03 00:00:00 2025-04-04 18:21:45 Patient Secure Msg Doctor Unassigned, [place] Doctor Unassigned, [place] [facility]) 1..840.114 350.1.13.10 4.2.7.2.[id number] [facility] 2025-02-22 00:00:00 2025-03-28 18:22:40 Patient Secure Msg [facility] 1..840.114 350.1.13.10 4.2.7.2.[id number] [facility] 2025-03-04 11:00:00 2025-03-04 11:00:00 Outpatient MELANI MONZON CRAIG [facility] [id number] [facility] 2025-02-27 13:30:00 2025-02-27 13:30:00 Outpatient LOUISE AKHTAR [facility] [id number] [facility] 2025-02-23 10:03:56 2025-02-23 23:59:00 [facility] 1..840.114 350.1.13.10 4.2.7.2.[id number] [facility] 2025-02-23 10:00:00 2025-02-23 11:05:32 Outpatient R ANGELITO PETERSON [facility] [id number] [facility] 2025-02-23 10:00:00 2025-02-23 11:05:32 [facility] 1..840.114 350.1.13.10 4.2.7.2.[id number] 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 2025-02-20 10:00:00 2025-02-20 10:25:37 Outpatient R JASMYN WARE [facility] [id number] [facility] 2025-02-20 10:00:00 2025-02-20 10:25:37 [facility] 1..840.114 350.1.13.10 4.2.7.2.[id number] [facility] 2023-12-15 00:00:00 2025-02-19 21:10:06 [facility] 1..840.114 350.1.13.10 4.2.7.2.[id number] [facility] 2024 00:00:00 2024 15:41:38 [facility] 1.2840.114 350.1.13.10 4.2.7.2.[id number] [facility] 2024-08-18 10:14:25 2024-08-18 23:59:00 Outpatient R JASMYN WARE [facility] [id number] [facility] 2024-08-18 10:14:25 2024-08-18 23:59:00 Hospital [facility] 1.84.114 350.1.13.10 4.2.7.2.[id number] 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 2024-08-18 10:30:00 2024-08-18 10:30:00 [facility] 1.84.114 350.1.13.10 4.2.7.2.[id number] [facility] 2024-02-29 00:00:00 2024-04-05 18:05:09 Patient Secure [facility] 1.2840.114 350.1.13.10 4.2.7.2.[id number] [facility] 2024-03-19 00:00:00 2024-03-19 11:17:09 Letter (Out) [facility] 1.20.114 350.1.13.10 4.2.7.2.[id number] [facility] 2024-03-18 15:00:00 2024-03-18 16:03:33 Outpatient R JASMYN WARE [facility] [id number] [facility] 2024-03-18 15:00:00 2024-03-18 16:03:33 [facility] 1..840.114 350.1.13.10 4.2.7.2.[id number] 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 2024-02-13 00:00:00 2024-03-15 18:02:53 Patient Secure [facility]sg [facility] 1..840.114 350.1.13.10 4.2.7.2.[id number] [facility] 2024-02-21 08:19:13 2024-02-21 23:59:00 [id number] 2024-02-21 08:19:13 2024-02-21 23:59:00 [facility] 1..840.114 350.1.13.10 4.2.7.2.[id number] [facility] 2024-02-13 10:25:48 2024-02-13 23:59:00 [facility] [id number] [facility] 2024-02-13 10:25:48 2024-02-13 23:59:00 Hospital Encounter [facility] 1.2840.114 350.1.13.10 4.2.7.2.[id number] [facility] 2024-02-12 13:40:00 2024-02-12 14:07:25 [facility] 1.2840.114 350.1.13.10 4.2.7.2.[id number] [facility] 2024-02-12 13:40:00 2024-02-12 13:40:00 [facility] [id number] 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 2024-02-11 09:30:00 2024-02-11 09:48:15 [facility] [id number] [facility] 2024-02-11 09:30:00 2024-02-11 09:48:15 Office [facility] 1.2.840.114 350.1.13.10 4.2.7.2.[id number] [facility] 2023-12-15 00:00:00 2023-12-15 00:00:00 Telephone [facility]ieRomeliaJasmynSelect [facility] Hospital GO?[facility] 1.2.840.114 350.1.13.10 4.2.7.2.[id number] [facility] 2023-12-15 00:00:00 2023-12-15 00:00:00 Telephone Jasmyn Ware [facility] 1.840.114 350.1.13.10 4.2.7.2.[id number] [facility] 2023-06-18 00:00:00 2023-06-18 00:00:00 [facility]ill [facility] 1..114 350.1.13.10 4.2.7.2.[id number] [facility] 2023-06-12 10:30:00 2023-06-12 10:30:00 [facility] [id number] [facility] 2023-06-08 00:00:00 2023-06-08 00:00:00 Refill Jeanie [facility] GO?[facility] 1.114 350.1.13.10 4.2.7.2.[id number] [facility] 2023-06-08 00:00:00 2023-06-08 00:00:00 [facility]ill [facility] 1.840.114 350.1.13.10 4.2.7.2.[id number] 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 2023-03-21 08:15:00 2023-03-21 08:15:00 Outpatient R JASMYN WARE [facility] [id number] [facility] 2023-03-14 00:00:00 2023-03-14 00:00:00 Telephone [facility] 1.2.840.114 350.1.13.10 4.2.7.2.[id number] [facility] 2023-01-16 09:00:00 2023-01-16 09:00:00 Outpatient R YVONNE COOK [facility] [id number] [facility] 2022-12-18 00:00:00 2022-12-18 00:00:00 Patient Secure Msg Doctor Unassigned, [place] [facility] 1.2.840.114 350.1.13.10 4.2.7.2.[id number] [facility] 2022-12-14 00:00:00 2022-12-14 00:00:00 Pre Visit Outreach Anneliese Dee [facility] 1.2.840.114 350.1.13.10 4.2.7.2.[id number] [facility] 2022-12-12 10:00:00 2022-12-12 13:21:23 [facility] 1.2.840.114 350.1.13.10 4.2.7.2.[id number] [facility] 2022-12-12 10:00:00 2022-12-12 13:21:23 Outpatient R MELISSANOÉ JASMYN [facility] [id number] [facility] 2022-12-12 00:00:00 2022-12-12 00:00:00 Orders Only Doctor Unassigned, [place] [facility] 1.2.840.114 350.1.13.10 4.2.7.2.[id number] [facility] Results Test Description Test Time Test Comments Results Resul t Comments Source XR Shoulder 2+ vw right 2025-01-28 8 23:29:22 EXAM: XR SHOULDER 2+ VW RIGHT HISTORY: Right shoulder pain Room 2 COMPARISON: Radiographs, 08/18/2024. FINDINGS: Radiographs of the right shoulder demonstrate no acute fracture ordislocation. 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 Prominent subacromial bone spur is present. Alignment iswithin normal limits. The soft tissues are unremarkable. [facility] ([id number])2024-02-11 20:04:24* Test Item Value Reference Range Interpretation Comme nts NA (test code = 7094840552) 139 mmol/L 135-145 K (test code = 7987927861) 4.3 mmol/L 3.5-5.0 CL (test code = 3892292964) 101 mmol/L 98-108 CO2 TOTAL (test code = 5975597801) 30 mmol/L 23-31 AGAP (test code = 7704364948) 8 2-16 BUN (test code = 9573972908) 16 mg/dL 7-23 GLUCOSE (test code = 6096122017) 103 mg/dL 70-110 CREATININE (test code = 2160-0) 0.89 mg/dL 0.60-1.25 TOTAL BILI (test code = 8837137008) 1.2 mg/dL 0.1-1.1 H CALCIUM (test code = 3043753029) 10.2 mg/dL 8.6-10.6 T PROTEIN (test code = 2537152192) 7.7 g/dL 6.3-8.2 ALBUMIN (test code = 8275960515) 4.5 g/dL 3.5-5.0 ALK PHOS (test code = 5354692221) 81 U/L 34-122 ALTv (test code = 1742-6) 14 U/L 5-50 AST(SGOT) (test code = 3314480939) 27 U/L 13-40 eGFR (test code = 93915-7) 94.5 mL/min/1.73m2 CKD-EPI eGFR (2020). Assuming creatinine has been stable day-to-day for at least three months, the eGFR indicates Category G1 (>= 90 mL/min/1.73 m2) Lab Interpretation (test code = 75828-5) Abnormal [facility] with [id number] 19:08:52* Test Item Value Reference Range Interpretation Comme nts WBC (test code = 6690-2) 14.54 4.20-10.70 H RBC (test code = 789-8) 5.67 4.26-5.52 H HGB (test code = 718-7) 17.7 g/dL 12.2-16.4 H HCT (test code = 4544-3) 52.5 % 38.4-49.3 H MCV (test code = 787-2) 92.6 fL 81.7-95.6 MCH (test code = 785-6) 31.2 pg 26.1-32.7 MCHC (test code = 786-4) 33.7 g/dL 31.2-35.0 RDW-SD (test code = 51782-0) 41.7 fL 38.5-51.6 RDW-CV (test code = 788-0) 12.2 % 12.1-15.4 PLT (test code = 777-3) 223 150-328 MPV (test code = 71861-8) 10.9 fL 9.8-13.0 NRBC/100 WBC (test code = 3369617347) 0.0 0.0-10.0 NRBC x10^3 (test code = 4265024231) See_Comment [Automated message] The system which generated this result transmitted reference range: 10*3/?L. The reference range was not used to interpret this result as normal/abnormal. GRAN MAT (NEUT) % (test code = 770-8) 75.3 % IMM GRAN % (test code = 5697966160) 0.30 % LYMPH % (test code = 736-9) 14.6 % MONO % (test code = 5905-5) 8.0 % EOS % (test code = 713-8) 1.3 % BASO % (test code = 706-2) 0.5 % GRAN MAT x10^3(ANC) (test code = 4166283083) 10.95 10*3/uL 1.99-6.95 H IMM GRAN x10^3 (test code = 8416952617) 0.05 10*3/uL 0.00-0.06 LYMPH x10^3 (test code = 731-0) 2.12 10*3/uL 1.09-3.23 MONO x10^3 (test code = 742-7) 1.16 10*3/uL 0.36-1.02 H EOS x10^3 (test code = 711-2) 0.19 10*3/uL 0.06-0.53 BASO x10^3 (test code = 704-7) 0.07 10*3/uL 0.01-0.09 Lab Interpretation (test code = 32303-1) [facility] ([id number])2023-03-21 21:21:45* Test Item Value Reference Range Interpretation Comme nts NA (test code = 3839804998) 139 mmol/L 135-145 K (test code = 5325781178) 4.0 mmol/L 3.5-5.0 CL (test code = 4901842273) 104 mmol/L 98-108 CO2 TOTAL (test code = 9374037405) 29 mmol/L 23-31 AGAP (test code = 1725219693) 6 2-16 BUN (test code = 9838351893) 19 mg/dL 7-23 GLUCOSE (test code = 7762450229) 113 mg/dL 70-110 H CREATININE (test code = 5567129905) 0.93 mg/dL 0.60-1.25 TOTAL BILI (test code = 6999188800) 0.9 mg/dL 0.1-1.1 CALCIUM (test code = 1148443044) 9.5 mg/dL 8.6-10.6 T PROTEIN (test code = 5236075655) 6.9 g/dL 6.3-8.2 ALBUMIN (test code = 4355830333) 4.0 g/dL 3.5-5.0 ALK PHOS (test code = 6978390135) 63 U/L 34-122 ALTv (test code = 1742-6) 17 U/L 5-50 AST(SGOT) (test code = 5320051238) 26 U/L 13-40 eGFR (test code = 9251249308) 81.5 mL/min/1.73m2 SHAILA (test code = SHAILA) Association of Glomerular Filtration Rate (GFR) and Staging of Kidney Disease* + --+ --+ ------+| GFR (mL/min/1.73 m2) ?| With Kidney Damage ?| ?Without Kidney Damage+ --------+ --------+ +| ?>90 ?| ?Stage one ?| ? Normal ?+ ---+ ---+ -------+| ?60-89 ?| ?Stage two ?| ? Decreased GFR ? + --+ --+ ------+| ?30-59 ?| ?Stage three ?| ? Stage three ? + --+ --+ ------+| ?15-29 ?| ?Stage four ? | ? Stage four ?+ ---+ ---+ -------+| ?<15 (or dialysis) ? ?| ?Stage five ? | ? Stage five ?+ ---+ ---+ -------+ *Each stage assumes the associated GFR level has been in effect for at least three months. ?Stages 1 to 5, with or without kidney disease, indicate chronic kidney disease. Notes: Determination of stages one and two (with eGFR >59mL/min/1.73 m2) requires estimation of kidney damage for at least three months as defined by structural or functional abnormalities of the kidney, manifested by either:Pathological abnormalities or Markers of kidney damage (including abnormalities in the composition of the blood or urine or abnormalities in imaging tests). Lab Interpretation (test code = 53595-7) Abnormal [facility]. METABOLIC PANEL ([id number])2023-03-21 21:21:45* Test Item Value Reference Range Interpretation Comme nts NA (test code = 2335865130) 139 mmol/L 135-145 K (test code = 0599994383) 4.0 mmol/L 3.5-5.0 CL (test code = 2761039359) 104 mmol/L 98-108 CO2 TOTAL (test code = 8048046050) 29 mmol/L 23-31 AGAP (test code = 3576283172) 6 2-16 BUN (test code = 3515598919) 19 mg/dL 7-23 GLUCOSE (test code = 0099817972) 113 mg/dL 70-110 H CREATININE (test code = 5752277912) 0.93 mg/dL 0.60-1.25 TOTAL BILI (test code = 7667524088) 0.9 mg/dL 0.1-1.1 CALCIUM (test code = 0788142474) 9.5 mg/dL 8.6-10.6 T PROTEIN (test code = 3851702614) 6.9 g/dL 6.3-8.2 ALBUMIN (test code = 8212839648) 4.0 g/dL 3.5-5.0 ALK PHOS (test code = 9772168550) 63 U/L 34-122 ALTv (test code = 1742-6) 17 U/L 5-50 AST(SGOT) (test code = 2646541516) 26 U/L 13-40 eGFR (test code = 1910556509) 81.5 mL/min/1.73m2 SHAILA (test code = SHAILA) Association of Glomerular Filtration Rate (GFR) and Staging of Kidney Disease* + --+ --+ ------+| GFR (mL/min/1.73 m2) ?| With Kidney Damage ?| ?Without Kidney Damage+ --------+ --------+ +| ?>90 ?| ?Stage one ?| ? Normal ?+ ---+ ---+ -------+| ?60-89 ?| ?Stage two ?| ? Decreased GFR ? + --+ --+ ------+| ?30-59 ?| ?Stage three ?| ? Stage three ? + --+ --+ ------+| ?15-29 ?| ?Stage four ? | ? Stage four ?+ ---+ ---+ -------+| ?<15 (or dialysis) ? ?| ?Stage five ? | ? Stage five ?+ ---+ ---+ -------+ *Each stage assumes the associated GFR level has been in effect for at least three months. ?Stages 1 to 5, with or without kidney disease, indicate chronic kidney disease. Notes: Determination of stages one and two (with eGFR >59mL/min/1.73 m2) requires estimation of kidney damage for at least three months as defined by structural or functional abnormalities of the kidney, manifested by either:Pathological abnormalities or Markers of kidney damage (including abnormalities in the composition of the blood or urine or abnormalities in imaging tests). Lab Interpretation (test code = 39778-9) Abnormal [facility] WITH [id number] 18:12:31* Test Item Value Reference Range Interpretation Comme nts WBC (test code = 6690-2) 9.82 See_Comment [Automated [employer] ge] The system which generated this result transmitted reference range: 4.20 - 10.70 10*3/?L. The reference range was not used to interpret this result as normal/abnormal. RBC (test code = 789-8) 5.06 See_Comment [Automated [employer] ge] The system which generated this result transmitted reference range: 4.26 - 5.52 10*6/?L. The reference range was not used to interpret this result as normal/abnormal. HGB (test code = 718-7) 16.0 g/dL 12.2-16.4 HCT (test code = 4544-3) 47.2 % 38.4-49.3 MCV (test code = 787-2) 93.3 fL 81.7-95.6 MCH (test code = 785-6) 31.6 pg 26.1-32.7 MCHC (test code = 786-4) 33.9 g/dL 31.2-35.0 RDW-SD (test code = 22112-8) 41.1 fL 38.5-51.6 RDW-CV (test code = 788-0) 11.9 % 12.1-15.4 L PLT (test code = 777-3) 187 See_Comment [Automated [employer] ge] The system which generated this result transmitted reference range: 150 - 328 10*3/?L. The reference range was not used to interpret this result as normal/abnormal. MPV (test code = 16442-6) 11.1 fL 9.8-13.0 NRBC/100 WBC (test code = 2231512171) 0.0 See_Comment [Automated [employer] ssage] The system which generated this result transmitted reference range: 0.0 - 10.0 /100 WBCs. The reference range was not used to interpret this result as normal/abnormal. NRBC x10^3 (test code = 7806254503) See_Comment [Automated messa ge] The system which generated this result transmitted reference range: 10*3/?L. The reference range was not used to interpret this result as normal/abnormal. GRAN MAT (NEUT) % (test code = 770-8) 68.7 % IMM GRAN % (test code = 0801910260) 0.30 % LYMPH % (test code = 736-9) 18.6 % MONO % (test code = 5905-5) 8.9 % EOS % (test code = 713-8) 2.6 % BASO % (test code = 706-2) 0.9 % GRAN MAT x10^3(ANC) (test code = 9970422666) 6.74 10*3/uL 1.99-6.95 IMM GRAN x10^3 (test code = 0038948601) 0.03 10*3/uL 0.00-0.06 LYMPH x10^3 (test code = 731-0) 1.83 10*3/uL 1.09-3.23 MONO x10^3 (test code = 742-7) 0.87 10*3/uL 0.36-1.02 EOS x10^3 (test code = 711-2) 0.26 10*3/uL 0.06-0.53 BASO x10^3 (test code = 704-7) 0.09 10*3/uL 0.01-0.09 Lab Interpretation (test code = 60417-4) Abnormal [facility] WITH [id number] 18:12:31* Test Item Value Reference Range Interpretation Comme nts WBC (test code = 6690-2) 9.82 See_Comment [Automated messa ge] The system which generated this result transmitted reference range: 4.20 - 10.70 10*3/?L. The reference range was not used to interpret this result as normal/abnormal. RBC (test code = 789-8) 5.06 See_Comment [Automated messa ge] The system which generated this result transmitted reference range: 4.26 - 5.52 10*6/?L. The reference range was not used to interpret this result as normal/abnormal. HGB (test code = 718-7) 16.0 g/dL 12.2-16.4 HCT (test code = 4544-3) 47.2 % 38.4-49.3 MCV (test code = 787-2) 93.3 fL 81.7-95.6 MCH (test code = 785-6) 31.6 pg 26.1-32.7 MCHC (test code = 786-4) 33.9 g/dL 31.2-35.0 RDW-SD (test code = 14977-0) 41.1 fL 38.5-51.6 RDW-CV (test code = 788-0) 11.9 % 12.1-15.4 L PLT (test code = 777-3) 187 See_Comment [Automated messa ge] The system which generated this result transmitted reference range: 150 - 328 10*3/?L. The reference range was not used to interpret this result as normal/abnormal. MPV (test code = 14611-2) 11.1 fL 9.8-13.0 NRBC/100 WBC (test code = 9229708610) 0.0 See_Comment [Automated me ssage] The system which generated this result transmitted reference range: 0.0 - 10.0 /100 WBCs. The reference range was not used to interpret this result as normal/abnormal. NRBC x10^3 (test code = 0371531272) See_Comment [Automated messa ge] The system which generated this result transmitted reference range: 10*3/?L. The reference range was not used to interpret this result as normal/abnormal. GRAN MAT (NEUT) % (test code = 770-8) 68.7 % IMM GRAN % (test code = 2264868299) 0.30 % LYMPH % (test code = 736-9) 18.6 % MONO % (test code = 5905-5) 8.9 % EOS % (test code = 713-8) 2.6 % BASO % (test code = 706-2) 0.9 % GRAN MAT x10^3(ANC) (test code = 3307020225) 6.74 10*3/uL 1.99-6.95 IMM GRAN x10^3 (test code = 7095371332) 0.03 10*3/uL 0.00-0.06 LYMPH x10^3 (test code = 731-0) 1.83 10*3/uL 1.09-3.23 MONO x10^3 (test code = 742-7) 0.87 10*3/uL 0.36-1.02 EOS x10^3 (test code = 711-2) 0.26 10*3/uL 0.06-0.53 BASO x10^3 (test code = 704-7) 0.09 10*3/uL 0.01-0.09 Lab Interpretation (test code = 40470-8) Abnormal [facility] Notes Date/Time Note Provider Source 2025-04-17 16:03:30 Images from the original note were not included. Notes: 02/11/24 Last Refilled: [facility]/pharmacy #[id number] [place], [place] - [address] [place] [address] AT [facility] Recent Visits Date Type Provider Dept 02/20/25 Office Visit Jasmyn Ware FNP [facility] 08/18/24 Office Visit Jasmyn Ware FNP [facility] 03/18/24 Office Visit Jasmyn Ware FNP [facility] 02/11/24 Office Visit Jasmyn Ware FNP [facility] Showing recent visits within past 540 days with a meds authorizing provider and meeting all other requirements Future Appointments No visits were found meeting these conditions. Showing future appointments within next 150 days with a meds authorizing provider and meeting all other requirements carvediloL 12.5 mg tabletSig: Take 1 tablet by mouth in the morning and 1 tablet in the evening. Take with meals.Disp: 180 tablet Refills: 1Start: 04/17/2025lass: eRXNon-formularyFor: Essential hypertensionLast ordered: 1 year ago (02/11/2024) by CHAGO Garrison [facility]: Beta Blockers [id number]/17/2025 02:15 PM Protocol Details Valid encounter within last 12 months Heart rate within normal limits and completed in the last 12 months To be filled at: [id number] [place] [address] Rhina Kelly MA [facility] 2025-02-20 11:15:00 Images from the original note were not included. Venipuncture collection performed by clean technique on the right anticubitus. Total of 1 attempts were made. Slight pressure and a bandage/dressing were applied to the site(s). The patient experienced no complications. The following specimens were processed according to instructions and sent to [facility] laboratories per lab order on 02/20/2025 : LT BLUE SST 1 RED LAV 1 PPT DK GREEN (LiHep) DK GREEN (SodH) DOMINGO DK BLUE (K2) DK BLUE (S) ACD Blood Culture NIPT/NTD [facility] 2024 15:40:50 Images from the original note were not included. Notes: 08/18/24 Last Refilled: [id number] [place] [address] Recent Visits Date Type Provider Dept 08/18/24 Office Visit Jasmyn Ware FNP [facility] 03/18/24 Office Visit Jasmyn Ware FNP [facility] 02/11/24 Office Visit Jasmyn Ware FNP [facility] Showing recent visits within past 540 days with a meds authorizing provider and meeting all other requirements Future Appointments No visits were found meeting these conditions. Showing future appointments within next 150 days with a meds authorizing provider and meeting all other requirements naproxen 500 mg tablet Sig: Take 1 tablet by mouth 2 (two) times daily as needed for Pain (scale 4-6). Disp: 60 tablet Refills: 0 Start: 2024 Class: eRX Non-formulary For: Limited range of motion (ROM) of shoulder, Acute pain of right shoulder Last ordered: 3 weeks ago (08/18/2024) by CHAGO Garrison Analgesics: NSAIDS [id number]/12/2024 03:37 PM Protocol Details Valid encounter within last 12 months Cr in normal range and within 360 days To be filled at: [id number] [address] AT [facility] A Kelly MA [facility] 2024-08-18 12:45:00 Images from the original note were not included. Venipuncture collection performed by clean technique on the left anticubitus. Total of 1 attempts were made. Slight pressure and a bandage/dressing were applied to the site(s). The patient experienced no complications. The following specimens were processed according to instructions and sent to [facility] laboratories per lab order on 08/18/2024 : LT BLUE SST 1 RED LAV 1 PPT DK GREEN (LiHep) DK GREEN (SodH) DOMINGO DK BLUE (K2) DK BLUE (S) ACD Blood Culture NIPT/NTD [facility] 2024-03-18 15:45:00 Images from the original note were not included. Venipuncture collection performed by clean technique on the right anticubitus. Total of 1 attempts were made. Slight pressure and a bandage/dressing were applied to the site(s). The patient experienced no complications. The following specimens were processed according to instructions and sent to [facility] laboratories per lab order on TODAY: LT BLUE SST RED LAV 1 PPT DK GREEN (LiHep) DK GREEN (SodH) DOMINGO DK BLUE (K2) DK BLUE (S) ACD Blood Culture NIPT/NTD [facility] 2024-02-21 08:30:00 24 hour holter (SEER 1000, #5) applied to patient, tolerated well. Wear, care, diary entry and monitor return teaching given, understanding verbalized. Monitor to be returned on Fri by 830am, return letter acknowledged and signed. Be Dimas MA [facility] 2024-02-11 10:00:00 Images from the original note were not included. Venipuncture collection performed by clean technique on the right anticubitus. Total of 1 attempts were made. Slight pressure and a bandage/dressing were applied to the site(s). The patient experienced no complications. The following specimens were processed according to instructions and sent to [facility] laboratories per lab order on 02/11/2024] : LT BLUE SST 1 RED LAV 1 PPT DK GREEN (LiHep) DK GREEN (SodH) DOMINGO DK BLUE (K2) DK BLUE (S) ACD Blood Culture NIPT/NTD [facility] 2024-02-11 09:30:00 Addended by: CHAGO WARE DNP-JASMYN RUCKER on: 02/13/2024 11:35 AM Modules accepted: Orders [facility] 2023-12-21 18:36:45 Please facilitate appointment [facility] 2023-12-21 08:40:30 Spoke to patient and informed him that he would need an appointment for lab work in order to get med refill. Patient voiced understanding and stated that he would call back to schedule. [facility] Angelica Mars RN [facility] 2023-12-20 17:42:36 Needs appointment [facility] 2023-12-19 09:23:56 LVM to assist with scheduling A Murray [facility] 2023-12-18 17:12:54 Needs appointment T METAL DUCT INSTALLER APPRENTICE [facility] 2023-12-18 08:42:35 I called and left message to schedule a 6mth follow up appointment with patient. A Bravo [facility] 2023-12-18 07:49:53 Pss Sent request for 6 month follow-up, Provider also wants an appointment scheduled ERROL. Thank You. A Mars RN [facility] 2023-12-18 07:48:43 Pss Please reach out to patient for a 6 month follow-up. Thank You. A Mars RN [facility] 2023-12-17 11:26:30 Images from the original note were not included. Requested Renewals simvastatin 20 mg tablet Sig: Take 1 tablet by mouth at bedtime. Disp: 90 tablet Refills: 0 Start: 12/15/2023 Class: eRX Non-formulary For: Mixed hyperlipidemia Last ordered: 6 months ago (06/08/2023) by CHAGO Garrison Cardiovascular: Antilipid - HMg-CoA Reductase Inhibitors - simvastatin [id number]/15/2023 03:52 PM Protocol Details Valid encounter within last 12 months Total Cholesterol within 360 days LDL within 360 days HDL within 360 days Triglycerides within 360 days AST in normal range and within 360 days ALT in normal range and within 360 days To be filled at: [facility]/pharmacy #[address] [place] [address] Recent Visits Date Type Provider Dept 12/12/22 Office Visit Jasmyn Ware FNP [facility] Showing recent visits within past 540 days with a meds authorizing provider and meeting all other requirements Future Appointments No visits were found meeting these conditions. Showing future appointments within next 150 days with a meds authorizing provider and meeting all other requirements A Duque DATA INTEGRITY ANALYST [facility] 2023-12-17 11:12:33 Images from the original note were not included. Requested Renewals lisinopriL-hydrochlorothiazide 20-12.5 mg per tablet Sig: Take 1 tablet by mouth in the morning and 1 tablet in the evening. Disp: 180 tablet Refills: 0 Start: 12/15/2023 Class: eRX Non-formulary For: Essential hypertension Last ordered: 6 months ago (06/08/2023) by CHAGO Garrison Cardiovascular: ACEI / Diuretic Combo [id number]/15/2023 03:53 PM Protocol Details Valid encounter within last 12 months Na in normal range and within 180 days K in normal range and within 180 days Cr in normal range and within 180 days To be filled at: [facility]/pharmacy #[address] [place] [address] Recent Visits Date Type Provider Dept 12/12/22 Office Visit Jasmyn Ware FNP [facility] Showing recent visits within past 540 days with a meds authorizing provider and meeting all other requirements Future Appointments No visits were found meeting these conditions. Showing future appointments within next 150 days with a meds authorizing provider and meeting all other requirements A Duque LVN [facility] 2023-12-17 11:11:07 Images from the original note were not included. Requested Renewals carvediloL 12.5 mg tablet Sig: Take 1 tablet by mouth in the morning and 1 tablet in the evening. Take with meals. Disp: 180 tablet Refills: 0 Start: 12/15/2023 Class: eRX Non-formulary For: Essential hypertension Last ordered: 6 months ago (06/18/2023) by CHAGO Garrison Cardiovascular: Beta Blockers [id number]/15/2023 03:56 PM Protocol Details Valid encounter within last 12 months Heart rate within normal limits and completed in the last 12 months To be filled at: [facility]/pharmacy #[id number] - [place], [place] - [address] AT [facility] Recent Visits Date Type Provider Dept 12/12/22 Office Visit Jasmyn Ware FNP [facility] Showing recent visits within past 540 days with a meds authorizing provider and meeting all other requirements Future Appointments No visits were found meeting these conditions. Showing future appointments within next 150 days with a meds authorizing provider and meeting all other requirements T METAL DUCT INSTALLER APPRENTICE Saray Duque [facility] 2023-06-08 13:09:52 Formatting of this n ote is different from the original. Order History 2 months ago (03/15/2023) simvastatin 20 mg tablet Take 1 tablet by mouth at bedtime. Dispense: 90 tablet Refills: 0 Start: 03/15/2023 By: Jasmyn Ware FNP Encounter Recent Visits Date Type Provider Dept 12/12/22 Office Visit Jasmyn Ware FNP [facility] Showing recent visits within past 540 days with a meds authorizing provider and meeting all other requirements Future Appointments No visits were found meeting these conditions. Showing future appointments within next 150 days with a meds authorizing provider and meeting all other requirements Saray Duque DATA INTEGRITY ANALYST [facility] 2023-06-08 13:08:47 Formatting of this n ote is different from the original. Images from the original note were not included. Requested Renewals lisinopriL-hydrochlorothiazide 20-12.5 mg per tablet Sig: Take 1 tablet by mouth in the morning and 1 tablet in the evening. Disp: 180 tablet Refills: 0 Start: 06/08/2023 Class: eRX Non-formulary For: Essential hypertension Last ordered: 2 months ago (03/15/2023) by CHAGO Garrison Cardiovascular: ACEI / Diuretic Combo Passed 06/08/2023 11:40 AM Protocol Details Valid encounter within last 12 months Na in normal range and within 180 days K in normal range and within 180 days Cr in normal range and within 180 days To be filled at: [facility]/pharmacy #[id number] - [place], [place] - [address] [place] [address] AT [facility] Recent Visits Date Type Provider Dept 12/12/22 Office Visit Jasmyn Ware FNP [facility] Showing recent visits within past 540 days with a meds authorizing provider and meeting all other requirements Future Appointments No visits were found meeting these conditions. Showing future appointments within next 150 days with a meds authorizing provider and meeting all other requirements Saray Duque LVN [facility]"
[2025-08-18] MEDS ORDERED: HYDROCODONE/APAP 7.5/325 MG TAB ONE (12:28)
--- NOTE | 2025-08-18 12:48 | RAD REPORT ---
EXAM: Knee Right 3 View INDICATION: PAIN COMPARISON: 11/04/2018 FINDINGS: No acute fracture. Unchanged moderate knee effusion. Medial and lateral compartment chondrocalcinosis. Mild medial and lateral compartment marginal osteop hytes. At least moderate patellofemoral compartment degenerative changes. Other: N/A IMPRESSION: No acute fracture. Tricompartmental degenerative changes which are most pronounced in the patellofemoral compartment. Moderate knee effusion, also present in 2019.
--- NOTE | 2025-08-18 13:28 | ER ---
Nurse's Notes [facility] Name: Martir Montejo Jr Age: 69 yrs Sex: Male : 1955 Arrival Date: 08/18/2025 Time: 11:31 Bed 10 Private MD: Diagnosis: Contusion of right knee;Effusion, right knee Presentation: 08/18 11:56 Chief complaint: Patient states: HE FELL WHILE TRYING TO GET OUT OF THE BATHTUB. dd2 REPORTS PAIN TO RT KNEE AND RT SHOULDER. Coronavirus screen: At this time, the client does not indicate any symptoms associated with coronavirus-19. Ebola Screen: No symptoms or risks identified at this time. Risk Assessment: Do you want to hurt yourself or someone else? Patient reports no desire to harm self or others. Onset of symptoms was August 16, 2025. 11:56 Method Of Arrival: Wheelchair dd2 11:56 Acuity: SONAM 3 dd2 13:00 Initial Sepsis Screen: Does the patient meet any 2 criteria? No. Patient's initial kj2 sepsis screen is negative. Does the patient have a suspected source of infection? No. Patient's initial sepsis screen is negative. Triage Assessment: 11:58 General: Appears in no apparent distress. uncomfortable, Behavior is calm, cooperative, dd2 appropriate for age. Pain: Complains of pain in anterior aspect of right shoulder, posterior aspect of right shoulder and right knee. Musculoskeletal: Reports pain in anterior aspect of right shoulder, posterior aspect of right shoulder and right knee. Historical: - Allergies: 11:58 PENICILLINS; dd2 - PMHx: 11:58 High Cholesterol; Hypertension; dd2 - PSHx: 11:58 None; dd2 - Immunization history:: Adult Immunizations unknown. - Infectious Disease History:: Denies. - Social history:: Smoking status: Patient reports the use of cigarette tobacco products, smokes one-half pack cigarettes per day. Screenin:49 [facility] ED Fall Risk Assessment (Adult) History of falling in the last 3 months, kj2 including since admission Yes- single mechanical fall (1 pt) Confusion or Disorientation No (0 pts) Intoxicated or Sedated No (0 pts) Impaired Gait No (0 pts) Mobility Assist Device Used No (0 pt) Altered Elimination No (0 pt) Score/Fall Risk Level 0 - 2 = Low Risk Maintained a safe environment, Hourly rounding (assess needs \T\ fall precautionary measures) done. Abuse screen: Denies threats or abuse. Denies injuries from another. Nutritional screening: No deficits noted. Tuberculosis screening: No symptoms or risk factors identified. Assessment: 12:49 Reassessment: Patient appears in no apparent distress at this time. Patient and/or kj2 family updated on plan of care and expected duration. Pain level reassessed. Patient is alert, oriented x 3, equal unlabored respirations, skin warm/dry/pink. 13:30 Reassessment: Patient appears in no apparent distress at this time. Patient is alert, kj2 oriented x 3, equal unlabored respirations, skin warm/dry/pink. Vital Signs: 11:56 BP 176 / 70; Pulse 52; Resp 16; Temp 98; Pulse Ox 97% ; Weight 81.65 kg; Pain 8/10; dd2 13:00 BP 160 / 67; Pulse 60; Resp 20; Pulse Ox 100% on R/A; kj2 13:30 BP 158 / 68; Pulse 60; Resp 20; Temp 98; Pulse Ox 100% on R/A; kj2 11:56 Pain Scale: Adult dd2 ED Course: 11:36 Patient arrived in ED. im 11:58 Triage completed. dd2 11:58 Arm band placed on right wrist. dd2 12:04 Catie Newman PA-C is PHCP. sb4 12:04 Erlin Pickering DO is Attending Physician. sb4 12:32 Jihan Solorzano, RN is Primary Nurse. kj2 12:45 Knee Right 3 View XRAY In Process Unspecified. EDMS 12:49 Patient has correct armband on for positive identification. Bed in low position. Call kj2 light in reach. Adult w/ patient. Provided Education on: call light. 13:27 Jose Luis Jones MD is Referral Physician. sb4 13:31 Patient did not have IV access during this emergency room visit. kj2 13:32 No provider procedures requiring assistance completed. kj2 Administered Medications: 12:37 Drug: Hydrocodone-Acetaminophen PO (7.5 mg-325 mg) 1 tabs PO once Route: PO; kj2 13:34 Follow up: Response: No adverse reaction kj2 Medication: 12:50 VIS not applicable for this client. kj2 Outcome: 13:27 Discharge ordered by MD. steinberg 13:32 Discharged to home via wheelchair, with family, kj2 13:32 Condition: stable 13:32 Discharge instructions given to patient, family, Instructed on discharge instructions, follow up and referral plans. Demonstrated understanding of instructions, follow-up care, medications, 13:44 Patient left the ED. kj2 Signatures: Dispatcher [employer] EDCatie Mina PA-C PA-C sb4 Guerda Love Krystal, RN RN kj2 LEXI ANDERSON RN RN dd2 Corrections: (The following items were deleted from the chart) 12:00 11:56 Pulse 52bpm; Resp 16bpm; Pulse Ox 97%; Temp 98F; 81.65 kg; Pain 8/10, Adult; dd2 dd2
--- NOTE | 2025-08-18 13:28 | EDPHYS ---
Physician Documentation [facility] Name: Martir Montejo Jr Age: 69 yrs Sex: Male : 1955 Arrival Date: 08/18/2025 Time: 11:31 Bed 10 Private MD: ED Physician Erlin Pickering HPI: 08/18 13:58 This 69 yrs old Male presents to ER via Wheelchair with complaints of Knee sb4 Pain. 13:58 Patient states that he fell onto his right knee 2 days ago while getting out of the sb4 bathtub. Reports pain and swelling to the region. Is able to walk, is just painful. Denies any prior injuries with that knee. States that he hurt his right upper arm to but it does not hurt that much and he has full range of motion. Historical: - Allergies: 11:58 PENICILLINS; dd2 - PMHx: 11:58 High Cholesterol; Hypertension; dd2 - PSHx: 11:58 None; dd2 - Immunization history:: Adult Immunizations unknown. - Infectious Disease History:: Denies. - Social history:: Smoking status: Patient reports the use of cigarette tobacco products, smokes one-half pack cigarettes per day. ROS: 13:58 Constitutional: Negative for fever, chills, and weight loss, sb4 13:58 MS/extremity: Positive for injury or acute deformity, pain, swelling, tenderness, of the right knee, 13:58 All other systems are negative, Exam: 13:58 Constitutional: This is a well developed, well nourished patient who is awake, alert, sb4 and in no acute distress. Head/Face: Normocephalic, atraumatic. Eyes: Extra-ocular motions intact. Periorbital areas with no swelling, redness, or edema. ENT: Mucous membranes moist. Respiratory: No increased work of breathing, no retractions or nasal flaring. Skin: Warm, dry with normal turgor. Normal color with no rashes, no lesions, and no evidence of cellulitis. 13:58 Musculoskeletal/extremity: Circulation is intact in all extremities. Pulses: are normal with no appreciated deficits, Sensation intact. Joints: the right knee displays effusion, pain at rest, painful range of motion, swelling, tenderness, Vital Signs: 11:56 BP 176 / 70; Pulse 52; Resp 16; Temp 98; Pulse Ox 97% ; Weight 81.65 kg; Pain 8/10; dd2 13:00 BP 160 / 67; Pulse 60; Resp 20; Pulse Ox 100% on R/A; kj2 13:30 BP 158 / 68; Pulse 60; Resp 20; Temp 98; Pulse Ox 100% on R/A; kj2 11:56 Pain Scale: Adult dd2 MDM: 12:04 Medical Screening Exam initiated sb4 13:58 Differential diagnosis: closed fracture, contusion, abrasion, tendonitis. Data sb4 reviewed: vital signs, nurses notes, radiologic studies, and as a result, I will discharge patient. Care significantly affected by the following chronic conditions: Hypertension. Counseling: I had a detailed discussion with the patient and/or guardian regarding the historical points, exam findings, and any diagnostic results supporting the discharge/admit diagnosis, radiology results, the need for outpatient follow up, for definitive care, a orthopedic surgeon, to return to the emergency department if symptoms worsen or persist or if there are any questions or concerns that arise at home. 14:17 External Records Reviewed: [facility] aware, no active scheduled prescriptions. sb4 08/18 12:09 Order name: Knee Right 3 View XRAY; Complete Time: 13:04 sb4 08/18 13:27 Order name: Yunier Wrap; Complete Time: 13:34 sb4 Administered Medications: 12:37 Drug: Hydrocodone-Acetaminophen PO (7.5 mg-325 mg) 1 tabs PO once Route: PO; kj2 13:34 Follow up: Response: No adverse reaction kj2 Disposition: 15:16 I was immediately available on-site in the Emergency Department for consultation in the ms3 care of the patient. Disposition Summary: 08/18/25 13:27 Discharge Ordered Notes: Location: Home sb4 Problem: new sb4 Symptoms: are unchanged sb4 Condition: Stable sb4 Diagnosis - Contusion of right knee sb4 - Effusion, right knee sb4 Followup: sb4 - With: Jose Luis Jones MD - When: As needed - Reason: Recheck today's complaints, Re-evaluation by your physician Discharge Instructions: - Discharge Summary Sheet sb4 - Contusion, [id number] sb4 - Knee Effusion, [id number] sb4 Forms: - Prescription Opioid Use sb4 - Patient Portal Instructions sb4 - Leadership Thank You Letter sb4 Prescriptions: - meloxicam 7.5 mg Oral tablet - take 1 tablet ORAL route daily; 14 tablet; Refills: 0, Product Selection sb4 Permitted - Prednisone 20 mg Oral Tablet - take 1 tablet ORAL route once daily for 5 days; 5 tablet; Refills: 0, Product sb4 Selection Permitted - Tramadol 50 mg Oral Tablet - take 1 tablet ORAL route every 8 hours as needed; 12 tablet; Refills: 0, sb4 Product Selection Permitted Signatures: Dispatcher [employer] EDMS Erlin Pickering, DO ms3 Catie Newman PA-C PALy sb4 Jihan Solorzano RN RN kj2 LEXI ANDERSON RN RN dd2
[2025-08-18 18:36] VITALS: TEMP 98
[2025-08-18 18:37] VITALS: O2SAT 100
[2025-08-18 18:38] VITALS: BP 158/68
== END 2025-08-18 13:44 | disposition home or self-care (01) ==
LOC: ER 11:31
DX: S80.01XA Contusion of right knee, initial encounter (principal); M25.461 Effusion, right knee; W18.30XA Fall on same level, unspecified, initial encounter; F17.210 Nicotine dependence, cigarettes, uncomplicated
CPT/HCPCS: 99283